=== PATIENT | male | born 1935 | race Caucasian/White ===

== ENCOUNTER 2018-11-13 22:31 | Inpatient (IN) | payer MEDICARE ==
--- NOTE | 2018-11-13 23:35 | EDM.PDOC ---
<OfficerJoey - Last Filed: 11/14/18 06:59> ED HPI GENERAL MEDICAL PROBLEM - General Chief Complaint: General Stated Complaint: [facility] Time Seen by Provider: 11/13/18 23:21 Source of Information: Reports: Patient, RN Notes Reviewed History Limitations: Reports: Altered Mental Status - History of Present Illness INITIAL COMMENTS - FREE TEXT/NARRATIVE: 82-year-old gentleman presents emergency department today via EMS services for visual hallucinations, he has a known history of lung cancer status post chemotherapy as well as radiation. Has a history of back pain which she's been using hydrocodone for her report from EMS has been using combination hydrocodone and alcohol. Reason for evaluation this evening is the gentleman reports seeing zebras walking in between [place] the farm. He denies that he 's had any alcohol this evening - Related Data Allergies Allergy/AdvReac Type Severity Reaction Status Date / Time Penicillins Allergy Rash Verified 11/13/18 22:34 Home Meds: Home Meds Acetaminophen/HYDROcodone [[place] 325-5 MG] 1 - 2 tab PO Q4H PRN 11/13/18 [ History] Past Medical History Cardiovascular History: Reports: Hypertension Musculoskeletal History: Reports: Back Pain, Chronic, Other (See Below) Other Musculoskeletal History: closed compression of second lumbar Oncologic (Cancer) History: Reports: Colon, Lung - Infectious Disease History Infectious Disease History: Reports: Chicken Pox, Measles, Mumps, Shingles - Past Surgical History Respiratory Surgical History: Reports: Lung Biopsies, Other (See Below) Other Respiratory Surgeries/Procedures: recently done with lung ca treatment GI Surgical History: Reports: Colostomy, Other (See Below) Other GI Surgeries/Procedures: colon ca Social & Family History - Family History Family Medical History: Noncontributory - Tobacco Use Smoking Status *Q: Current Every Day Smoker Years of Tobacco use: 40 Packs/Tins Daily: 1 - Caffeine Use Caffeine Use: Reports: Coffee - Recreational Drug Use Recreational Drug Use: No ED ROS GENERAL - Review of Systems Review Of Systems: See Below Constitutional: Reports: No Symptoms HEENT: Reports: No Symptoms Respiratory: Reports: No Symptoms Cardiovascular: Reports: No Symptoms GI/Abdominal: Reports: No Symptoms Musculoskeletal: Reports: No Symptoms Skin: Reports: No Symptoms Neurological: Reports: No Symptoms Psychiatric: Reports: Hallucinations ED EXAM, GENERAL - Physical Exam Exam: See Below Exam Limited By: No Limitations General Appearance: Alert, WD/WN, No Apparent Distress Respiratory/Chest: No Respiratory Distress, Lungs Clear, Normal Breath Sounds, No Accessory Muscle Use, Chest Non-Tender Cardiovascular: Regular Rate, Rhythm, No Murmur Psychiatric: Normal Affect, Normal Mood, Other (Visual hallucinations) Course - Vital Signs Last Recorded V/S: Last Vital Signs Temp 96.1 F 11/14/18 10:21 Pulse 77 11/14/18 10:21 Resp 16 11/14/18 10:21 BP 140/54 L 11/14/18 10:21 Pulse Ox 96 11/14/18 10:21 - Orders/Labs/Meds Orders: Medication Orders Haloperidol Lactate (Haldol) 5 mg IVPUSH Q2H PRN PRN Reason: Agitation Lorazepam (Ativan) 1 - 2 mg IVPUSH Q2H PRN PRN Reason: agitation Sodium Chloride (Saline Flush) 10 ml FLUSH ASDIRECTED PRN PRN Reason: Keep Vein Open Labs: Laboratory Tests 11/13/18 11/13/18 11/13/18 Range/Units 23:40 23:40 23:40 WBC 6.1 (4.5-11.0) K/uL RBC 3.96 L (4.30-5.90) M/uL Hgb 12.8 (12.0-15.0) g/dL Hct 36.5 L (40.0-54.0) % MCV 92 (80-98) fL MCH 32 H (27-31) pg MCHC 35 (32-36) % Plt Count 233 (150-400) K/uL Neut % (Auto) 79 H (36-66) % Lymph % (Auto) 8 L (24-44) % [place] % (Auto) 13 H (2-6) % Eos % (Auto) 0 L (2-4) % Baso % (Auto) 0 (0-1) % Sodium 134 L (140-148) mmol/L Potassium 3.5 L (3.6-5.2) mmol/L Chloride 95 L (100-108) mmol/L Carbon Dioxide 30 (21-32) mmol/L Anion Gap 12.5 (5.0-14.0) mmol/L BUN 20 H (7-18) mg/dL Creatinine 0.8 (0.8-1.3) mg/dL Est Cr Clr Drug Dosing 63.74 mL/min Estimated GFR (MDRD) > 60 (>60) Glucose 110 H (74-106) mg/dL Calcium 9.7 (8.5-10.1) mg/dL Total Bilirubin 0.9 (0.2-1.0) mg/dL AST 23 (15-37) U/L ALT 23 (12-78) U/L Alkaline Phosphatase 89 (46-116) U/L Total Protein 7.5 (6.4-8.2) g/dL Albumin 3.4 (3.4-5.0) g/dL Globulin 4.1 H (2.3-3.5) g/dL Albumin/Globulin Ratio 0.8 L (1.2-2.2) Urine Color Urine Appearance Urine pH (4.5-8.0) Ur Specific [place] (1.008-1.030) Urine Protein (NEGATIVE) mg/dL Urine Glucose (UA) (NEGATIVE) mg/dL Urine Ketones (NEGATIVE) mg/dL Urine Occult Blood (NEGATIVE) Urine Nitrite (NEGAITVE) Urine Bilirubin (NEGATIVE) Urine Urobilinogen (NORMAL) mg/dL Ur Leukocyte Esterase (NEGATIVE) Urine RBC (0-5) Urine WBC (0-5) Ur Epithelial Cells Amorphous Sediment Urine Bacteria Urine Mucus Salicylates (2.0-20.0) mg/dL Urine Opiates Screen (NEGATIVE) Ur Oxycodone Screen (NEGATIVE) Urine Methadone Screen (NEGATIVE) Ur Propoxyphene Screen (NEGATIVE) Acetaminophen < 2.0 L (10.0-30.0) ug/mL Ur Barbiturates Screen (NEGATIVE) Ur Tricyclics Screen (NEGATIVE) Ur Phencyclidine Scrn (NEGATIVE) Ur Amphetamine Screen (NEGATIVE) U Methamphetamines Scrn (NEGATIVE) Urine MDMA Screen (NEGATIVE) U Benzodiazepines Scrn (NEGATIVE) U Cocaine Metab Screen (NEGATIVE) U Marijuana (THC) Screen (NEGATIVE) Ethyl Alcohol < 3 mg/dL 11/13/18 11/14/18 11/14/18 Range/Units 23:40 01:00 01:00 WBC (4.5-11.0) K/uL RBC (4.30-5.90) M/uL Hgb (12.0-15.0) g/dL Hct (40.0-54.0) % MCV (80-98) fL MCH (27-31) pg MCHC (32-36) % Plt Count (150-400) K/uL Neut % (Auto) (36-66) % Lymph % (Auto) (24-44) % [place] % (Auto) (2-6) % Eos % (Auto) (2-4) % Baso % (Auto) (0-1) % Sodium (140-148) mmol/L Potassium (3.6-5.2) mmol/L Chloride (100-108) mmol/L Carbon Dioxide (21-32) mmol/L Anion Gap (5.0-14.0) mmol/L BUN (7-18) mg/dL Creatinine (0.8-1.3) mg/dL Est Cr Clr Drug Dosing mL/min Estimated GFR (MDRD) (>60) Glucose (74-106) mg/dL Calcium (8.5-10.1) mg/dL Total Bilirubin (0.2-1.0) mg/dL AST (15-37) U/L ALT (12-78) U/L Alkaline Phosphatase (46-116) U/L Total Protein (6.4-8.2) g/dL Albumin (3.4-5.0) g/dL Globulin (2.3-3.5) g/dL Albumin/Globulin Ratio (1.2-2.2) Urine Color Yellow Urine Appearance Cloudy Urine pH 8.0 (4.5-8.0) Ur Specific [place] 1.015 (1.008-1.030) Urine Protein Negative (NEGATIVE) mg/dL Urine Glucose (UA) Normal (NEGATIVE) mg/dL Urine Ketones 50 H (NEGATIVE) mg/dL Urine Occult Blood Trace (NEGATIVE) Urine Nitrite Negative (NEGAITVE) Urine Bilirubin Negative (NEGATIVE) Urine Urobilinogen Normal (NORMAL) mg/dL Ur Leukocyte Esterase Small (NEGATIVE) Urine RBC 0-5 (0-5) Urine WBC 0-5 (0-5) Ur Epithelial Cells Few Amorphous Sediment Many Urine Bacteria Many Urine Mucus Not seen Salicylates 0.4 L (2.0-20.0) mg/dL Urine Opiates Screen Presumptive positive H (NEGATIVE) Ur Oxycodone Screen Presumptive positive H (NEGATIVE) Urine Methadone Screen Negative (NEGATIVE) Ur Propoxyphene Screen Negative (NEGATIVE) Acetaminophen (10.0-30.0) ug/mL Ur Barbiturates Screen Negative (NEGATIVE) Ur Tricyclics Screen Negative (NEGATIVE) Ur Phencyclidine Scrn Negative (NEGATIVE) Ur Amphetamine Screen Negative (NEGATIVE) U Methamphetamines Scrn Negative (NEGATIVE) Urine MDMA Screen Negative (NEGATIVE) U Benzodiazepines Scrn Negative (NEGATIVE) U Cocaine Metab Screen Negative (NEGATIVE) U Marijuana (THC) Screen Negative (NEGATIVE) Ethyl Alcohol mg/dL Meds: Medications Generic Name Dose Route Start Last Admin Trade Name Freq PRN Reason Stop Dose Admin Haloperidol Lactate 5 mg 11/14/18 10:59 Haldol IVPUSH Q2H PRN Agitation Lorazepam 1 - 2 mg 11/14/18 10:54 Ativan IVPUSH Q2H PRN agitation Sodium Chloride 10 ml 11/14/18 11:00 Saline Flush FLUSH ASDIRECTED PRN Keep Vein Open Discontinued Medications Generic Name Dose Route Start Last Admin Trade Name Freq PRN Reason Stop Dose Admin Haloperidol 5 mg 11/14/18 06:56 11/14/18 07:03 Haldol PO 11/14/18 06:57 5 mg ONETIME ONE Administration Haloperidol Lactate 5 mg 11/14/18 07:21 11/14/18 07:25 Haldol IM 11/14/18 07:22 5 mg ONETIME ONE Administration Lorazepam 0.5 mg 11/14/18 06:56 11/14/18 07:00 Ativan PO 11/14/18 06:57 0.5 mg ONETIME ONE Administration Lorazepam 1 mg 11/14/18 07:22 Ativan IM 11/14/18 07:23 ONETIME ONE Departure - Departure Disposition: Admitted As Inpatient 65 Clinical Impression: Acute delirium - Discharge Information - Assessment/Plan Plan: Assessment Acuity = acute Site and laterality = suspicious for increasing dementia Etiology = unclear etiology Manifestations = waxing and waning of lucency with visual hallucinations Location of injury = Home Lab values = CBC CMP and urinalysis unremarkable urine drug screen positive for opiates Plan He declined any image studies of his head family also was not interested in pursuing this at this time, we did have several hours of observation he will wax and wane from lucency at this time he denies any easy bruises being [place] with [place] however he continues to feel he has to go somewhere. He is not had any sleep this evening, family will be presents this morning after 7: 00 at which time have a family conference to discuss treatment options This note was dictated using Hublished voice recognition software please call with any questions on syntax or grammar. <Wale Duke - Last Filed: 11/14/18 11:25> Course - Re-Assessments/Exams Free Text/Narrative Re-Assessment/Exam: 11/14/18 09:27 Patient accepted from Officer at shift transfer. He was becoming increasingly agitated so 5 mg of IM Haldol was given after the patient refused to take oral Haldol. Within 30 minutes he calmed down very nicely but was still upset. He was evaluated by his primary provider Dr. Caleb Palomares, and he is going to admit the patient with suspected narcotic withdrawal and consider further evaluation and treatment. Departure - Departure Time of Disposition: 10:39 Condition: Fair
[2018-11-14 01:53] LABS: ACETAMINOPHEN < 2.0 ug/mL (10.0-30.0)
[2018-11-14] MEDS ORDERED: Haloperidol 5 MG Tab PO ONE (06:56)
[2018-11-14] MEDS ORDERED: LORazepam 0.5 MG Tab PO ONE (06:56)
[2018-11-14] MEDS ORDERED: Haloperidol Lactate 5 MG/ML SDV IM ONE (07:21)
[2018-11-14] MEDS ORDERED: LORazepam 2 MG/ML SDV IM ONE (07:22)
--- NOTE | 2018-11-14 08:48 | PCM.HP ---
H&P History of Present Illness - General Date of Service: 11/14/18 Admit Problem/Dx: Admission Diagnosis/Problem Admission Diagnosis/Problem Hallucinations Source of Information: EMS, Family History Limitations: Reports: Altered Mental Status, Combative/Threatening, Uncooperative - History of Present Illness Initial Comments - Free Text/Narative: Milo has recently been diagnosed with cancer of the lung and started radiation therapy of his brain prophylactically according to the physician at [place] and [place]. He has finished 4 of 6 treatments. There has not been any evidence of cancer in his brain but doing this prophylactically. He was recently found to be hyponatremic and was treated with extra salt pills. He has been confused recently especially at night according to the family he got his gone out he thought there is somebody in his house somebody outside he thought there was a lot of N his place and accusing people of all sorts of conditions caused by hallucination. The daughter called this morning said she was very concerned about the safety of his and he was a danger to himself and to others. They have put the guns away apparently. Onset of Symptoms: Reports: Gradual Duration of Symptoms: Reports: Day(s): Associated Symptoms: Reports: Confusion - Related Data Allergies/Adverse Reactions: Allergies Allergy/AdvReac Type Severity Reaction Status Date / Time Penicillins Allergy Rash Verified 11/13/18 22:34 Home Medications: Home Meds Acetaminophen/HYDROcodone [[place] 325-5 MG] 1 - 2 tab PO Q4H PRN 11/13/18 [ History] Past Medical History Cardiovascular History: Reports: Hypertension Genitourinary History: Reports: Urostomy Musculoskeletal History: Reports: Back Pain, Chronic, Other (See Below) Other Musculoskeletal History: closed compression of second lumbar Oncologic (Cancer) History: Reports: Colon, Lung - Infectious Disease History Infectious Disease History: Reports: Chicken Pox, Measles, Mumps, Shingles - Past Surgical History Respiratory Surgical History: Reports: Lung Biopsies, Other (See Below) Other Respiratory Surgeries/Procedures: recently done with lung ca treatment GI Surgical History: Reports: Colostomy, Other (See Below) Other GI Surgeries/Procedures: colon ca Social & Family History - Family History Family Medical History: Noncontributory - Tobacco Use Smoking Status *Q: Current Every Day Smoker Years of Tobacco use: 40 Packs/Tins Daily: 1 - Caffeine Use Caffeine Use: Reports: Coffee - Recreational Drug Use Recreational Drug Use: No H&P Review of Systems - Review of Systems: Review Of Systems: See Below General: Reports: Weight Loss HEENT: Reports: No Symptoms Pulmonary: Reports: No Symptoms Cardiovascular: Reports: No Symptoms Gastrointestinal: Reports: No Symptoms Genitourinary: Reports: No Symptoms Musculoskeletal: Reports: No Symptoms Skin: Reports: No Symptoms Psychiatric: Reports: Confusion, Anxiety, Agitation, Hallucinations, Hallucinations (Visual) Neurological: Reports: Confusion, Gait Disturbance Exam - Exam Exam: See Below - Vital Signs Vital Signs: Last Vital Signs Temp 97.3 F 11/14/18 02:59 Pulse 91 11/14/18 08:22 Resp 18 11/14/18 02:59 BP 150/90 H 11/14/18 08:22 Pulse Ox 98 11/14/18 02:59 Weight: 142 lb - Exam General: Moderate Distress HEENT: PERRLA, Hearing Intact, Mucosa Moist & [place], Nares Patent, Normal Nasal Septum, Posterior Pharynx Clear, Conjunctiva Clear, EOMI, EACs Clear, TMs Clear Neck: Supple, Trachea Midline, 2 Lungs: Clear to Auscultation, Normal Respiratory Effort Cardiovascular: Regular Rate, Regular Rhythm GI/Abdominal Exam: Normal Bowel Sounds, Soft, Non-Tender, No Organomegaly, No Distention, No Abnormal Bruit, No Mass, Pelvis Stable Back Exam: Other (kyphosis) Extremities: Normal Inspection Peripheral Pulses: 1+: Radial (L), Radial (R) Skin: Warm, Dry, Intact Neuro Extensive - Mental Status: Disorientation to Person, Disorientation to Time, Inattentive, Memory Loss-Remote Events Psychiatric: Anxious, Agitated, Hallucinations - Patient Data Lab Results Last 24 hrs: Laboratory Results - last 24 hr 11/13/18 11/13/18 11/13/18 Range/Units 23:40 23:40 23:40 WBC 6.1 (4.5-11.0) K/uL RBC 3.96 L (4.30-5.90) M/uL Hgb 12.8 (12.0-15.0) g/dL Hct 36.5 L (40.0-54.0) % MCV 92 (80-98) fL MCH 32 H (27-31) pg MCHC 35 (32-36) % Plt Count 233 (150-400) K/uL Neut % (Auto) 79 H (36-66) % Lymph % (Auto) 8 L (24-44) % [place] % (Auto) 13 H (2-6) % Eos % (Auto) 0 L (2-4) % Baso % (Auto) 0 (0-1) % Sodium 134 L (140-148) mmol/L Potassium 3.5 L (3.6-5.2) mmol/L Chloride 95 L (100-108) mmol/L Carbon Dioxide 30 (21-32) mmol/L Anion Gap 12.5 (5.0-14.0) mmol/L BUN 20 H (7-18) mg/dL Creatinine 0.8 (0.8-1.3) mg/dL Est Cr Clr Drug Dosing 63.74 mL/min Estimated GFR (MDRD) > 60 (>60) Glucose 110 H (74-106) mg/dL Calcium 9.7 (8.5-10.1) mg/dL Total Bilirubin 0.9 (0.2-1.0) mg/dL AST 23 (15-37) U/L ALT 23 (12-78) U/L Alkaline Phosphatase 89 (46-116) U/L Total Protein 7.5 (6.4-8.2) g/dL Albumin 3.4 (3.4-5.0) g/dL Globulin 4.1 H (2.3-3.5) g/dL Albumin/Globulin Ratio 0.8 L (1.2-2.2) Urine Color Urine Appearance Urine pH (4.5-8.0) Ur Specific [place] (1.008-1.030) Urine Protein (NEGATIVE) mg/dL Urine Glucose (UA) (NEGATIVE) mg/dL Urine Ketones (NEGATIVE) mg/dL Urine Occult Blood (NEGATIVE) Urine Nitrite (NEGAITVE) Urine Bilirubin (NEGATIVE) Urine Urobilinogen (NORMAL) mg/dL Ur Leukocyte Esterase (NEGATIVE) Urine RBC (0-5) Urine WBC (0-5) Ur Epithelial Cells Amorphous Sediment Urine Bacteria Urine Mucus Salicylates (2.0-20.0) mg/dL Urine Opiates Screen (NEGATIVE) Ur Oxycodone Screen (NEGATIVE) Urine Methadone Screen (NEGATIVE) Ur Propoxyphene Screen (NEGATIVE) Acetaminophen < 2.0 L (10.0-30.0) ug/mL Ur Barbiturates Screen (NEGATIVE) Ur Tricyclics Screen (NEGATIVE) Ur Phencyclidine Scrn (NEGATIVE) Ur Amphetamine Screen (NEGATIVE) U Methamphetamines Scrn (NEGATIVE) Urine MDMA Screen (NEGATIVE) U Benzodiazepines Scrn (NEGATIVE) U Cocaine Metab Screen (NEGATIVE) U Marijuana (THC) Screen (NEGATIVE) Ethyl Alcohol < 3 mg/dL 11/13/18 11/14/18 11/14/18 Range/Units 23:40 01:00 01:00 WBC (4.5-11.0) K/uL RBC (4.30-5.90) M/uL Hgb (12.0-15.0) g/dL Hct (40.0-54.0) % MCV (80-98) fL MCH (27-31) pg MCHC (32-36) % Plt Count (150-400) K/uL Neut % (Auto) (36-66) % Lymph % (Auto) (24-44) % [place] % (Auto) (2-6) % Eos % (Auto) (2-4) % Baso % (Auto) (0-1) % Sodium (140-148) mmol/L Potassium (3.6-5.2) mmol/L Chloride (100-108) mmol/L Carbon Dioxide (21-32) mmol/L Anion Gap (5.0-14.0) mmol/L BUN (7-18) mg/dL Creatinine (0.8-1.3) mg/dL Est Cr Clr Drug Dosing mL/min Estimated GFR (MDRD) (>60) Glucose (74-106) mg/dL Calcium (8.5-10.1) mg/dL Total Bilirubin (0.2-1.0) mg/dL AST (15-37) U/L ALT (12-78) U/L Alkaline Phosphatase (46-116) U/L Total Protein (6.4-8.2) g/dL Albumin (3.4-5.0) g/dL Globulin (2.3-3.5) g/dL Albumin/Globulin Ratio (1.2-2.2) Urine Color Yellow Urine Appearance Cloudy Urine pH 8.0 (4.5-8.0) Ur Specific [place] 1.015 (1.008-1.030) Urine Protein Negative (NEGATIVE) mg/dL Urine Glucose (UA) Normal (NEGATIVE) mg/dL Urine Ketones 50 H (NEGATIVE) mg/dL Urine Occult Blood Trace (NEGATIVE) Urine Nitrite Negative (NEGAITVE) Urine Bilirubin Negative (NEGATIVE) Urine Urobilinogen Normal (NORMAL) mg/dL Ur Leukocyte Esterase Small (NEGATIVE) Urine RBC 0-5 (0-5) Urine WBC 0-5 (0-5) Ur Epithelial Cells Few Amorphous Sediment Many Urine Bacteria Many Urine Mucus Not seen Salicylates 0.4 L (2.0-20.0) mg/dL Urine Opiates Screen Presumptive positive H (NEGATIVE) Ur Oxycodone Screen Presumptive positive H (NEGATIVE) Urine Methadone Screen Negative (NEGATIVE) Ur Propoxyphene Screen Negative (NEGATIVE) Acetaminophen (10.0-30.0) ug/mL Ur Barbiturates Screen Negative (NEGATIVE) Ur Tricyclics Screen Negative (NEGATIVE) Ur Phencyclidine Scrn Negative (NEGATIVE) Ur Amphetamine Screen Negative (NEGATIVE) U Methamphetamines Scrn Negative (NEGATIVE) Urine MDMA Screen Negative (NEGATIVE) U Benzodiazepines Scrn Negative (NEGATIVE) U Cocaine Metab Screen Negative (NEGATIVE) U Marijuana (THC) Screen Negative (NEGATIVE) Ethyl Alcohol mg/dL Result Diagrams: 11/13/18 23:40 11/13/18 23:40 Problem List Initiated/Reviewed/Updated: Yes Orders Last 24hrs: Active Orders 24 hr Category Date Time Status Patient Status [ADT] Routine ADT 11/14/18 08:42 Ordered Height and Weight [RC] DAILY Care 11/14/18 08:42 Ordered Intake and Output [RC] QSHIFT Care 11/14/18 08:46 Ordered Oxygen Therapy [RC] PRN Care 11/14/18 08:42 Ordered Up to Chair [RC] QID Care 11/14/18 08:42 Ordered VTE/DVT Education [RC] Per Unit Routine Care 11/14/18 08:42 Ordered Vital Signs [RC] Q4H Care 11/14/18 08:42 Ordered Regular Diet [DIET] Diet 11/14/18 Lunch Ordered Resuscitation Status Routine Resus Stat 11/14/18 08:42 Ordered Assessment/Plan Comment:: Assessment/Plan: #1. Hallucinations: He received Haldol while in the emergency room we'll continue with Haldol and or Ativan and Tuesday keep him comfortable. #2. Cancer of the lung. Small cell lung cancer-primary #3. Malignant neoplasm of the bladder. #4. 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 #5. Essential hypertension. we'll watch his blood pressure closely and give medication as needed. #6. Cystectomy with ileal conduit #7. Hypokalemia: We'll supplement with oral potassium #8. Compression Fracture L2. Assume acute. Will get the films or the report. #8. Allergies- penicillin
[2018-11-14] MEDS ORDERED: LORazepam 2 MG/ML SDV IVPUSH PRN (10:54)
[2018-11-14] MEDS ORDERED: Haloperidol Lactate 5 MG/ML SDV IVPUSH PRN (10:59)
[2018-11-14] MEDS ORDERED: Sodium Chloride 0.9% 10 ML Syringe FLUSH PRN (11:00)
[2018-11-14] MEDS ORDERED: Sodium Chloride 0.9% 80 ML IV ONE (11:32)
[2018-11-14] MEDS ORDERED: Sodium Chloride 0.9% 10 ML Syringe FLUSH ONE (11:32)
[2018-11-14] MEDS ORDERED: Iopamidol 612 MG/ML 100 ML Bottle IV SCH (11:45)
--- NOTE | 2018-11-14 12:54 | CRLCT ---
INDICATION: Visual hallucinations. TECHNIQUE: Scanning of the head was performed without and with 100 cc of Isovue 300 contrast material IV. COMPARISON: None. FINDINGS: No intracranial hemorrhage is demonstrated. No positive mass effect or abnormal contrast enhancement is evident. Differentiation between the plummer matter and white matter is preserved. There is nonspecific decreased attenuation in the cerebral white matter which is most likely due to aging/chronic microvascular ischemic disease. The ventricles and other subarachnoid spaces are within normal limits for the patient`s age. No calvarial abnormality is evident. The visualized paranasal and mastoid sinuses are clear. IMPRESSION: 1. No acute abnormality demonstrated. 2. 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 Please note that all CT scans at this facility use dose modulation, iterative reconstruction, and/or weight-based dosing when appropriate to reduce radiation dose to as low as reasonably achievable. Dictated by Mahendra Jeter MD @ Nov 14 2018 12:47PM Signed by Dr. Mahendra Jeter @ Nov 14 2018 12:52PM
[2018-11-14] MEDS ORDERED: Potassium Chloride 20 MEQ Tab.ER ONE (20:05)
[2018-11-14] MEDS: Potassium Chloride 20 MEQ Tab.ER PO SCH (20:10)
[2018-11-15] MEDS: Potassium Chloride 20 MEQ Tab.ER PO SCH ×2 (10:56→20:38)
--- NOTE | 2018-11-15 17:41 | PCM.PN ---
- General Info Date of Service: 11/15/18 Subjective Update: He appears to be improving with less mental confusion. He is complaining of back pain. He has been sleeping. He is stkill confused. - Review of Systems General: Reports: Weakness HEENT: Reports: No Symptoms Pulmonary: Reports: No Symptoms Cardiovascular: Reports: No Symptoms Gastrointestinal: Reports: No Symptoms Musculoskeletal: Reports: Back Pain Skin: Reports: No Symptoms Neurological: Reports: No Symptoms - Patient Data Vitals - Most Recent: Last Vital Signs Temp 98.1 F 11/15/18 10:00 Pulse 78 11/15/18 16:00 Resp 20 11/15/18 16:00 BP 136/68 11/15/18 16:00 Pulse Ox 96 11/15/18 16:00 Weight - Most Recent: 142 lb I&O - Last 24 Hours: Intake & Output 11/15/18 11/15/18 11/15/18 06:59 14:59 22:59 Intake Total 120 Output Total 365 Balance -245 Med Orders - Current: Current Medications Haloperidol Lactate (Haldol) 5 mg IVPUSH Q2H PRN PRN Reason: Agitation Lorazepam (Ativan) 1 - 2 mg IVPUSH Q2H PRN PRN Reason: agitation Potassium Chloride (Klor-Con M20) 20 meq PO BID [facility] Last Admin: 11/15/18 10:56 Dose: 20 meq Sodium Chloride (Saline Flush) 10 ml FLUSH ASDIRECTED PRN PRN Reason: Keep Vein Open Discontinued Medications Haloperidol (Haldol) 5 mg PO ONETIME ONE Stop: 11/14/18 06:57 Last Admin: 11/14/18 07:03 Dose: 5 mg Haloperidol Lactate (Haldol) 5 mg IM ONETIME ONE Stop: 11/14/18 07:22 Last Admin: 11/14/18 07:25 Dose: 5 mg Sodium Chloride (Normal Saline) 80 mls @ 3.5 mls/sec IV ONETIME ONE Stop: 11/14/18 11:33 Last Admin: 11/14/18 11:58 Dose: 3 mls/sec Iopamidol (Isovue-300 (61%)) 100 ml IV . DIRECTED [facility] Stop: 11/14/18 11:46 Last Admin: 11/14/18 11:57 Dose: 100 ml Lorazepam (Ativan) 0.5 mg PO ONETIME ONE Stop: 11/14/18 06:57 Last Admin: 11/14/18 07:00 Dose: 0.5 mg Lorazepam (Ativan) 1 mg IM ONETIME ONE Stop: 11/14/18 07:23 Last Admin: 11/14/18 20:03 Dose: Not Given Potassium Chloride (Klor-Con M20) Confirm Administered Dose 20 meq .ROUTE .STK- MED ONE Stop: 11/14/18 20:06 Last Admin: 11/14/18 21:16 Dose: Not Given Sodium Chloride (Saline Flush) 10 ml FLUSH ONETIME ONE Stop: 11/14/18 11:33 Last Admin: 11/14/18 11:57 Dose: 10 ml - Exam General: Alert, Oriented Lungs: Clear to Auscultation, Normal Respiratory Effort Cardiovascular: Regular Rate, Regular Rhythm GI/Abdominal Exam: Normal Bowel Sounds, Soft, Non-Tender, No Organomegaly, No Distention, No Abnormal Bruit, No Mass, Pelvis Stable Extremities: Normal Inspection, Normal Range of Motion, Non-Tender, No Pedal Edema, Normal Capillary Refill Peripheral Pulses: 1+: Radial (L), Radial (R) Skin: Warm, Dry, Intact Psy/Mental Status: Depressed, Hallucinations - Problem List Review Problem List Initiated/Reviewed/Updated: Yes - My Orders Last 24 Hours: My Active Orders 11/14/18 18:45 Potassium Chloride [Klor-Con M20] 20 meq PO BID - Plan Plan:: Assessment/Plan: #1. Hallucinations: He received Haldol while in the emergency room we'll continue with Haldol and or Ativan and Tuesday keep him comfortable. #2. Cancer of the lung. Small cell lung cancer-primary #3. Malignant neoplasm of the bladder. #4. 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 #5. Essential hypertension. we'll watch his blood pressure closely and give medication as needed. Blood pressure is good control. #6. Cystectomy with ileal conduit #7. Hypokalemia: We'll supplement with oral potassium #8. Compression Fracture L2. Assume acute. Will get the films or the report. Depending on the report of the CT of the back will help us decide on therapy or vertebral plasty. #8. Allergies- penicillin
[2018-11-15] MEDS ORDERED: Bisacodyl 5 MG Tab PO ONE (21:00)
[2018-11-16] MEDS ORDERED: Bisacodyl 5 MG Tab PO PRN (08:00)
[2018-11-16 08:15] VITALS: BP 153/88
[2018-11-16] MEDS: Potassium Chloride 20 MEQ Tab.ER PO SCH (09:08)
--- NOTE | 2018-11-16 09:43 | PCM.PN ---
- General Info Date of Service: 11/16/18 Subjective Update: This morning he is sitting in the chair he is alert and orientated 3 answering questions and appears to be stable. He is aware that he was hallucinating he still remembers the incidence that brought him into the hospital. He continues to have back pain of significance. Functional Status: Reports: Tolerating Diet - Review of Systems General: Reports: Weakness HEENT: Reports: No Symptoms Pulmonary: Reports: No Symptoms Cardiovascular: Reports: No Symptoms Gastrointestinal: Reports: No Symptoms Genitourinary: Reports: No Symptoms Musculoskeletal: Reports: Back Pain Skin: Reports: No Symptoms Neurological: Reports: Gait Disturbance Psychiatric: Reports: No Symptoms - Patient Data Vitals - Most Recent: Last Vital Signs Temp 96.0 F 11/16/18 08:14 Pulse 61 11/16/18 08:14 Resp 16 11/16/18 08:14 BP 153/88 H 11/16/18 08:14 Pulse Ox 96 11/16/18 08:14 Weight - Most Recent: 142 lb I&O - Last 24 Hours: Intake & Output 11/15/18 11/16/18 11/16/18 22:59 06:59 14:59 Intake Total 120 240 Output Total 550 Balance -430 240 Lab Results Last 24 Hours: Laboratory Results - last 24 hr 11/16/18 11/16/18 Range/Units 04:44 04:44 WBC 4.6 (4.5-11.0) K/uL RBC 3.96 L (4.30-5.90) M/uL Hgb 12.9 (12.0-15.0) g/dL Hct 36.9 L (40.0-54.0) % MCV 93 (80-98) fL MCH 33 H (27-31) pg MCHC 35 (32-36) % Plt Count 217 (150-400) K/uL Sodium 134 L (140-148) mmol/L Potassium 3.9 (3.6-5.2) mmol/L Chloride 97 L (100-108) mmol/L Carbon Dioxide 29 (21-32) mmol/L Anion Gap 11.9 (5.0-14.0) mmol/L BUN 14 (7-18) mg/dL Creatinine 0.8 (0.8-1.3) mg/dL Est Cr Clr Drug Dosing 63.74 mL/min Estimated GFR (MDRD) > 60 (>60) Glucose 100 (74-106) mg/dL Calcium 9.3 (8.5-10.1) mg/dL Med Orders - Current: Current Medications Bisacodyl (Dulcolax) 10 mg PO DAILY PRN PRN Reason: Constipation Haloperidol Lactate (Haldol) 5 mg IVPUSH Q2H PRN PRN Reason: Agitation Lorazepam (Ativan) 1 - 2 mg IVPUSH Q2H PRN PRN Reason: agitation Potassium Chloride (Klor-Con M20) 20 meq PO BID [facility] Last Admin: 11/16/18 09:08 Dose: 20 meq Sodium Chloride (Saline Flush) 10 ml FLUSH ASDIRECTED PRN PRN Reason: Keep Vein Open Discontinued Medications Bisacodyl (Dulcolax) 20 mg PO ONETIME ONE Stop: 11/15/18 21:01 Last Admin: 11/15/18 20:37 Dose: 20 mg Haloperidol (Haldol) 5 mg PO ONETIME ONE Stop: 11/14/18 06:57 Last Admin: 11/14/18 07:03 Dose: 5 mg Haloperidol Lactate (Haldol) 5 mg IM ONETIME ONE Stop: 11/14/18 07:22 Last Admin: 11/14/18 07:25 Dose: 5 mg Sodium Chloride (Normal Saline) 80 mls @ 3.5 mls/sec IV ONETIME ONE Stop: 11/14/18 11:33 Last Admin: 11/14/18 11:58 Dose: 3 mls/sec Iopamidol (Isovue-300 (61%)) 100 ml IV . DIRECTED [facility] Stop: 11/14/18 11:46 Last Admin: 11/14/18 11:57 Dose: 100 ml Lorazepam (Ativan) 0.5 mg PO ONETIME ONE Stop: 11/14/18 06:57 Last Admin: 11/14/18 07:00 Dose: 0.5 mg Lorazepam (Ativan) 1 mg IM ONETIME ONE Stop: 11/14/18 07:23 Last Admin: 11/14/18 20:03 Dose: Not Given Potassium Chloride (Klor-Con M20) Confirm Administered Dose 20 meq .ROUTE .STK- MED ONE Stop: 11/14/18 20:06 Last Admin: 11/14/18 21:16 Dose: Not Given Sodium Chloride (Saline Flush) 10 ml FLUSH ONETIME ONE Stop: 11/14/18 11:33 Last Admin: 11/14/18 11:57 Dose: 10 ml - Exam General: Alert HEENT: Pupils Equal, Pupils Reactive, EOMI, Mucous Membr. Moist/[place] Neck: Supple Lungs: Clear to Auscultation Cardiovascular: Regular Rate, Regular Rhythm GI/Abdominal Exam: Normal Bowel Sounds Extremities: Normal Inspection, Normal Range of Motion, Non-Tender, No Pedal Edema, Normal Capillary Refill Peripheral Pulses: 1+: Radial (L), Radial (R) Skin: Warm, Dry, Intact Neurological: No New Focal Deficit Psy/Mental Status: Alert, Normal Affect, Normal Mood - Problem List Review Problem List Initiated/Reviewed/Updated: Yes - My Orders Last 24 Hours: My Active Orders 11/15/18 18:05 Admission Status [Patient Status] [ADT] Routine 11/16/18 08:00 Bisacodyl [Dulcolax] 10 mg PO DAILY PRN - Plan Plan:: Assessment/Plan: #1. Hallucinations: He received Haldol while in the emergency room. he has cleared mentally at the present time with no hallucinations. #2. Cancer of the lung. Small cell lung cancer-primary #3. Malignant neoplasm of the bladder. #4. 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 #5. Essential hypertension. we'll watch his blood pressure closely and give medication as needed. Blood pressure is good control. #6. Cystectomy with ileal conduit #7. Hypokalemia: We'll supplement with oral potassium. Potassium level today is 3.9. #8. Compression Fracture L2. this fracture of L2 is new as we did receive the report from [facility] in [place]. I also spoke with Dr. Cutler who has agreed to do vertebroplasty on the L2 fracture and will arrange for him to have this done within the next 2 days. #8. Allergies- penicillin He'll be discharged home today.
--- NOTE | 2018-11-16 09:49 | PCM.DCSUM1 ---
Discharge Summary - Hospital Course Brief History: Milo has a history of lung cancer and recently had radiation to his brain. I was told that this is prophylaxis radiation by the oncologist. he recently fell and had a fracture of L2 and was taking a large amount of narcotics. He became confused and hallucinating and came to the emergency room by ambulance as he was in danger to himself and to his family. He was seen in the emergency room placed on Haldol. He was confused and danger to himself and was admitted to ICU for close observation. Diagnosis: Stroke: No - Discharge Data Discharge Date: 11/16/18 Discharge Disposition: Home, Self-Care 01 Condition: Fair - Patient Summary/Data Hospital Course: After being seen in the emergency room he was admitted to the ICU and still was confused. He was observed closely and slept for close to 48 hours and responded well and is orientated at the time of discharge 3. He continued to have pain in his back and he is going to have her vertebral plasty within the next [address] of the head was done which showed no acute findings. Potassium was slightly low and was corrected to 3.9. All other laboratory analysis were unremarkable. He'll be discharged home in care of his family. He is a little unsteady on his feet due to generalized weakness but mentally he appears to be stable. He is not to take any narcotics as this I feel causes hallucination. He'll take anti-inflammatory medications and instead of narcotics and the family is aware of this. He is also aware of the danger of narcotics for him. - Patient Instructions Diet: Heart Healthy Diet Activity: As Tolerated - Discharge Plan *PRESCRIPTION DRUG MONITORING PROGRAM REVIEWED*: No Home Medications: Home Meds Potassium Chloride [Klor-Con M20] 20 meq PO DAILY tab.er 11/16/18 [Rx] Forms: ED Department Discharge Referrals: Armond Palomares Sr, MD [Primary Care Provider] - - Discharge Summary/Plan Comment DC Time >30 min.: Yes Discharge Summary/Plan Comment: Assessment/Plan: #1. Hallucinations: He received Haldol while in the emergency room. he has cleared mentally at the present time with no hallucinations. #2. Cancer of the lung. Small cell lung cancer-primary #3. Malignant neoplasm of the bladder. #4. 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 #5. Essential hypertension. we'll watch his blood pressure closely and give medication as needed. Blood pressure is good control. #6. Cystectomy with ileal conduit #7. Hypokalemia: We'll supplement with oral potassium. Potassium level today is 3.9. #8. Compression Fracture L2. this fracture of L2 is new as we did receive the report from [facility] in [place]. I also spoke with Dr. Cutler who has agreed to do vertebroplasty on the L2 fracture and will arrange for him to have this done within the next 2 days. #8. Allergies- penicillin He'll be discharged home today. - General Info Subjective Update: This morning he is sitting in the chair he is alert and orientated 3 answering questions and appears to be stable. He is aware that he was hallucinating he still remembers the incidence that brought him into the hospital. He continues to have back pain of significance. - Review of Systems General: Reports: Weakness HEENT: Reports: No Symptoms Pulmonary: Reports: No Symptoms Cardiovascular: Reports: No Symptoms Gastrointestinal: Reports: No Symptoms Genitourinary: Reports: No Symptoms Musculoskeletal: Reports: Back Pain Neurological: Reports: No Symptoms Psychiatric: Reports: No Symptoms - Patient Data Vitals - Most Recent: Last Vital Signs Temp 96.0 F 11/16/18 08:14 Pulse 61 11/16/18 08:14 Resp 16 11/16/18 08:14 BP 153/88 H 11/16/18 08:14 Pulse Ox 96 11/16/18 08:14 Weight - Most Recent: 142 lb I&O - Last 24 hours: Intake & Output 11/15/18 11/16/18 11/16/18 22:59 06:59 14:59 Intake Total 120 240 Output Total 550 Balance -430 240 Lab Results - Last 24 hrs: Laboratory Results - last 24 hr 11/16/18 11/16/18 Range/Units 04:44 04:44 WBC 4.6 (4.5-11.0) K/uL RBC 3.96 L (4.30-5.90) M/uL Hgb 12.9 (12.0-15.0) g/dL Hct 36.9 L (40.0-54.0) % MCV 93 (80-98) fL MCH 33 H (27-31) pg MCHC 35 (32-36) % Plt Count 217 (150-400) K/uL Sodium 134 L (140-148) mmol/L Potassium 3.9 (3.6-5.2) mmol/L Chloride 97 L (100-108) mmol/L Carbon Dioxide 29 (21-32) mmol/L Anion Gap 11.9 (5.0-14.0) mmol/L BUN 14 (7-18) mg/dL Creatinine 0.8 (0.8-1.3) mg/dL Est Cr Clr Drug Dosing 63.74 mL/min Estimated GFR (MDRD) > 60 (>60) Glucose 100 (74-106) mg/dL Calcium 9.3 (8.5-10.1) mg/dL Med Orders - Current: Current Medications Bisacodyl (Dulcolax) 10 mg PO DAILY PRN PRN Reason: Constipation Haloperidol Lactate (Haldol) 5 mg IVPUSH Q2H PRN PRN Reason: Agitation Lorazepam (Ativan) 1 - 2 mg IVPUSH Q2H PRN PRN Reason: agitation Potassium Chloride (Klor-Con M20) 20 meq PO BID [facility] Last Admin: 11/16/18 09:08 Dose: 20 meq Sodium Chloride (Saline Flush) 10 ml FLUSH ASDIRECTED PRN PRN Reason: Keep Vein Open Discontinued Medications Bisacodyl (Dulcolax) 20 mg PO ONETIME ONE Stop: 11/15/18 21:01 Last Admin: 11/15/18 20:37 Dose: 20 mg Haloperidol (Haldol) 5 mg PO ONETIME ONE Stop: 11/14/18 06:57 Last Admin: 11/14/18 07:03 Dose: 5 mg Haloperidol Lactate (Haldol) 5 mg IM ONETIME ONE Stop: 11/14/18 07:22 Last Admin: 11/14/18 07:25 Dose: 5 mg Sodium Chloride (Normal Saline) 80 mls @ 3.5 mls/sec IV ONETIME ONE Stop: 11/14/18 11:33 Last Admin: 11/14/18 11:58 Dose: 3 mls/sec Iopamidol (Isovue-300 (61%)) 100 ml IV . DIRECTED [facility] Stop: 11/14/18 11:46 Last Admin: 11/14/18 11:57 Dose: 100 ml Lorazepam (Ativan) 0.5 mg PO ONETIME ONE Stop: 11/14/18 06:57 Last Admin: 11/14/18 07:00 Dose: 0.5 mg Lorazepam (Ativan) 1 mg IM ONETIME ONE Stop: 11/14/18 07:23 Last Admin: 11/14/18 20:03 Dose: Not Given Potassium Chloride (Klor-Con M20) Confirm Administered Dose 20 meq .ROUTE .STK- MED ONE Stop: 11/14/18 20:06 Last Admin: 11/14/18 21:16 Dose: Not Given Sodium Chloride (Saline Flush) 10 ml FLUSH ONETIME ONE Stop: 11/14/18 11:33 Last Admin: 11/14/18 11:57 Dose: 10 ml - Exam General: Reports: Alert, Oriented HEENT: Reports: Pupils Equal, Pupils Reactive, EOMI, Mucous Membr. Moist/[place] Neck: Reports: Supple Lungs: Reports: Clear to Auscultation Cardiovascular: Reports: Regular Rate, Regular Rhythm GI/Abdominal Exam: Normal Bowel Sounds, Soft, Non-Tender, No Organomegaly, No Distention, No Abnormal Bruit, No Mass, Pelvis Stable Back Exam: Reports: Paraspinal Tenderness, Vertebral Tenderness Extremities: Normal Inspection, Normal Range of Motion, Non-Tender, No Pedal Edema, Normal Capillary Refill Skin: Reports: Warm Neurological: Reports: No New Focal Deficit Psy/Mental Status: Reports: Alert, Normal Affect, Normal Mood
== END 2018-11-16 11:26 | disposition home or self-care (01) | DRG 884 ==
LOC: JP.ED 22:31 → JP.ICU 11-14 08:42
PROVIDERS: ADMIT Internal Medicine; ATTEND Internal Medicine
DX: R40.4 Transient alteration of awareness (principal); S32.029A Unspecified fracture of second lumbar vertebra, initial encounter for closed fracture; R41.0 Disorientation, unspecified; C34.90 Malignant neoplasm of unspecified part of unspecified bronchus or lung; R44.1 Visual hallucinations; R45.1 Restlessness and agitation; T40.605A Adverse effect of unspecified narcotics, initial encounter; I10 Essential (primary) hypertension; M54.9 Dorsalgia, unspecified; E87.6 Hypokalemia; W19.XXXA Unspecified fall, initial encounter; G89.29 Other chronic pain; F17.210 Nicotine dependence, cigarettes, uncomplicated; Z79.891 Long term (current) use of opiate analgesic; Z85.118 Personal history of other malignant neoplasm of bronchus and lung; Z92.21 Personal history of antineoplastic chemotherapy; Z92.3 Personal history of irradiation; Z88.0 Allergy status to penicillin; Z79.899 Other long term (current) drug therapy; Z85.038 Personal history of other malignant neoplasm of large intestine; Z93.3 Colostomy status; Z86.711 Personal history of pulmonary embolism; Z90.6 Acquired absence of other parts of urinary tract
CPT/HCPCS: 36415; 80053; 80305; 81001; 85025; 96372; 99285 ×3; A9270; G0480 ×3; J1630; 70470; 80048; 85027; J7030; Q9967

== ENCOUNTER 2018-11-30 23:18 | Inpatient (IN) | payer BC, MEDICARE ==
--- NOTE | 2018-11-30 23:35 | EDM.PDOC ---
ED HPI GENERAL MEDICAL PROBLEM - General Stated Complaint: MEDICAL [facility] Time Seen by Provider: 11/30/18 23:20 Source of Information: Reports: Patient, EMS, Family History Limitations: Reports: No Limitations - History of Present Illness INITIAL COMMENTS - FREE TEXT/NARRATIVE: 82-year-old male who was up in [place] today for an MRI to evaluate what sounds like cancer, returned home very weak and confused more than his baseline. Patient himself feels very weak but is not complaining of any pain or fever. Denies nausea or vomiting. His son is on capable of taking care of him at home because of his extreme weakness and confusion. He called the ambulance to send him to the hospital to be admitted. 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 He is very confused and fatigued. Onset: Unknown/Unsure Associated Symptoms: Reports: Confusion, Malaise, Weakness. Denies: Chest Pain , Cough denies pain Pain Score (Numeric/FACES): 0 - Related Data Allergies Allergy/AdvReac Type Severity Reaction Status Date / Time Penicillins Allergy Rash Verified 12/01/18 00:10 Home Meds: Home Meds Acetaminophen [Tylenol] 650 mg PO BID 11/16/18 [History] Potassium Chloride [Klor-Con M20] 20 meq PO DAILY tab.er 11/16/18 [Rx] Past Medical History HEENT History: Reports: Impaired Vision Cardiovascular History: Reports: Hypertension Genitourinary History: Reports: Urostomy Musculoskeletal History: Reports: Back Pain, Chronic, Other (See Below) Other Musculoskeletal History: closed compression of second lumbar Oncologic (Cancer) History: Reports: Colon, Lung - Infectious Disease History Infectious Disease History: Reports: Chicken Pox, Measles, Mumps, Shingles - Past Surgical History Respiratory Surgical History: Reports: Lung Biopsies, Other (See Below) Other Respiratory Surgeries/Procedures: recently done with lung ca treatment GI Surgical History: Reports: Colostomy, Other (See Below) Other GI Surgeries/Procedures: colon ca Social & Family History - Family History Family Medical History: Noncontributory - Caffeine Use Caffeine Use: Reports: Coffee ED ROS GENERAL - Review of Systems Review Of Systems: See Below Constitutional: Reports: Malaise Respiratory: Denies: Shortness of Breath Cardiovascular: Denies: Chest Pain GI/Abdominal: Denies: Abdominal Pain, Nausea, Vomiting : Reports: Other (Urostomy bag is leaking) Skin: Reports: Bruising (Widespread bruising on his arms) Neurological: Denies: Headache Psychiatric: Reports: Confusion ED EXAM, GENERAL - Physical Exam Exam: See Below Exam Limited By: No Limitations General Appearance: Alert, No Apparent Distress Eye Exam: Bilateral Eye: EOMI Head: Atraumatic Neck: Supple, Non-Tender Respiratory/Chest: Lungs Clear Cardiovascular: Regular Rate, Rhythm. No: Extra Beats GI/Abdominal: Soft, Non-Tender Extremities: No: Pedal Edema Neurological: Confused, Slow to Respond Psychiatric: Depressed Mood, Flat Affect Skin Exam: Warm, Dry, Other (some bruising on the arms) Course - Vital Signs Last Recorded V/S: Last Vital Signs Temp 98.8 F 11/30/18 23:37 Pulse 71 11/30/18 23:37 Resp 14 11/30/18 23:37 BP 147/71 H 11/30/18 23:37 Pulse Ox 97 11/30/18 23:37 - Orders/Labs/Meds Orders: Active Orders 24 hr Category Date Time Status CULTURE BLOOD [BC] Urgent Lab 11/30/18 23:40 Received CULTURE BLOOD [BC] Urgent Lab 11/30/18 23:50 Received CULTURE URINE [RM] Stat Lab 12/01/18 00:47 Received Sodium Chloride 0.9% [Normal Saline] 1,000 ml Med 12/01/18 00:30 Active IV ASDIRECTED Blood Culture x2 Reflex Set [OM.PC] Urgent Oth 11/30/18 23:32 Ordered Medication Orders Sodium Chloride (Normal Saline) 1,000 mls @ 250 mls/hr IV ASDIRECTED JOHANA Last Admin: 12/01/18 00:35 Dose: 250 mls/hr Sodium Chloride (Normal Saline) 1,000 mls @ 125 mls/hr IV ASDIRECTED JOHANA Labs: Laboratory Tests 11/30/18 11/30/18 12/01/18 Range/Units 23:31 23:31 00:55 WBC 6.4 (4.5-11.0) K/uL RBC 3.87 L (4.30-5.90) M/uL Hgb 12.6 (12.0-15.0) g/dL Hct 33.0 L (40.0-54.0) % MCV 85 (80-98) fL MCH 33 H (27-31) pg MCHC 38 H (32-36) % Plt Count 200 (150-400) K/uL Neut % (Auto) 84 H (36-66) % Lymph % (Auto) 5 L (24-44) % [place] % (Auto) 10 H (2-6) % Eos % (Auto) 1 L (2-4) % Baso % (Auto) 0 (0-1) % Sodium 117 L* (140-148) mmol/L Potassium 4.1 (3.6-5.2) mmol/L Chloride 82 L (100-108) mmol/L Carbon Dioxide 28 (21-32) mmol/L Anion Gap 11.1 (5.0-14.0) mmol/L BUN 13 (7-18) mg/dL Creatinine 0.6 L (0.8-1.3) mg/dL Est Cr Clr Drug Dosing 83.79 mL/min Estimated GFR (MDRD) > 60 (>60) Glucose 114 H (74-106) mg/dL Calcium 9.0 (8.5-10.1) mg/dL Total Bilirubin 1.0 (0.2-1.0) mg/dL AST 26 (15-37) U/L ALT 19 (12-78) U/L Alkaline Phosphatase 109 (46-116) U/L Total Protein 6.9 (6.4-8.2) g/dL Albumin 3.2 L (3.4-5.0) g/dL Globulin 3.7 H (2.3-3.5) g/dL Albumin/Globulin Ratio 0.9 L (1.2-2.2) Urine Color Yellow Urine Appearance Cloudy Urine pH 6.0 (4.5-8.0) Ur Specific [place] 1.010 (1.008-1.030) Urine Protein Trace (NEGATIVE) mg/dL Urine Glucose (UA) Normal (NEGATIVE) mg/dL Urine Ketones 15 H (NEGATIVE) mg/dL Urine Occult Blood Trace (NEGATIVE) Urine Nitrite Negative (NEGAITVE) Urine Bilirubin Small (NEGATIVE) Urine Urobilinogen 1 (NORMAL) mg/dL Ur Leukocyte Esterase Negative (NEGATIVE) Urine RBC 0-5 (0-5) Urine WBC 5-10 H (0-5) Ur Epithelial Cells Few Amorphous Sediment Few Urine Bacteria Rare Urine Mucus Moderate Meds: Medications Generic Name Dose Route Start Last Admin Trade Name Cheryl PRN Reason Stop Dose Admin Sodium Chloride 1,000 mls @ 250 mls/hr 12/01/18 00:30 12/01/18 00:35 Normal Saline IV 250 mls/hr ASDIRECTED JOHANA Administration Sodium Chloride 1,000 mls @ 125 mls/hr 12/01/18 02:00 Normal Saline IV ASDIRECTED JOHANA - Re-Assessments/Exams Free Text/Narrative Re-Assessment/Exam: 12/01/18 01:19 UA was obtained and showed no significant infection, CBC was relatively normal but his sodium was only 117 compared to 134 just a week ago. An IV was started and he was given 250 mL of normal saline an hour and his primary provider Dr. Caleb Palomares was called for admission. The plan is to stabilize his electrolytes and reassessed tomorrow. Departure - Departure Time of Disposition: 02:11 Disposition: Admitted As Inpatient 65 Condition: Fair Clinical Impression: Hyponatremia, Confusion, Weakness - Discharge Information - My Orders Last 24 Hours: My Active Orders 11/30/18 23:32 Blood Culture x2 Reflex Set [OM.PC] Urgent 11/30/18 23:40 CULTURE BLOOD [BC] Urgent 11/30/18 23:50 CULTURE BLOOD [BC] Urgent 12/01/18 00:30 Sodium Chloride 0.9% [Normal Saline] 1,000 ml IV ASDIRECTED 12/01/18 00:47 CULTURE URINE [RM] Stat - Assessment/Plan Last 24 Hours: My Active Orders 11/30/18 23:32 Blood Culture x2 Reflex Set [OM.PC] Urgent 11/30/18 23:40 CULTURE BLOOD [BC] Urgent 11/30/18 23:50 CULTURE BLOOD [BC] Urgent 12/01/18 00:30 Sodium Chloride 0.9% [Normal Saline] 1,000 ml IV ASDIRECTED 12/01/18 00:47 CULTURE URINE [RM] Stat
[2018-12-01] MEDS ORDERED: Sodium Chloride 0.9% 1,000 ML IV SCH (00:30)
[2018-12-01] MEDS: Haloperidol Lactate 5 MG/ML SDV IVPUSH PRN ×3 (02:47→19:36)
[2018-12-01] MEDS: Sodium Chloride 0.9% 1,000 ML IV SCH ×4 (02:51→21:49)
[2018-12-01] MEDS: SODIUM CHLORIDE 1 GM PO SCH ×3 (10:31→20:49)
--- NOTE | 2018-12-01 13:33 | PCM.HP ---
H&P History of Present Illness - General Date of Service: 12/01/18 Admit Problem/Dx: Admission Diagnosis/Problem Admission Diagnosis/Problem Hyponatremia confusion, hyponatremia Source of Information: Family History Limitations: Reports: Altered Mental Status, Combative/Threatening (Bradley Rizzo is a dietary sent [place]azar). Denies: Intoxication - History of Present Illness Initial Comments - Free Text/Narative: Milo has been having increased problems with dementia to a point review can hardly function and is worse after he has radiation to his brain. 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 He was brought in by ambulance and a poor hygienic condition and the family can't take more. He hallucinates and has loss of his body functions. he has an extensive history of medical problems. He is confused and having hard time ambulating and unable to take care of himself. Onset of Symptoms: Reports: Gradual denies pain Pain Score (Numeric/FACES): 0 Back Pain Score (Numeric/FACES): 6 - Related Data Allergies/Adverse Reactions: Allergies Allergy/AdvReac Type Severity Reaction Status Date / Time Penicillins Allergy Rash Verified 12/01/18 00:10 Home Medications: Home Meds Acetaminophen [Tylenol] 650 mg PO BID 11/16/18 [History] Potassium Chloride [Klor-Con M20] 20 meq PO DAILY tab.er 11/16/18 [Rx] Past Medical History HEENT History: Reports: Impaired Vision Cardiovascular History: Reports: Hypertension Genitourinary History: Reports: Urostomy Musculoskeletal History: Reports: Back Pain, Chronic, Other (See Below) Other Musculoskeletal History: closed compression of second lumbar Oncologic (Cancer) History: Reports: Colon, Lung - Infectious Disease History Infectious Disease History: Reports: Chicken Pox, Measles, Mumps, Shingles - Past Surgical History Respiratory Surgical History: Reports: Lung Biopsies, Other (See Below) Other Respiratory Surgeries/Procedures: recently done with lung ca treatment GI Surgical History: Reports: Colostomy, Other (See Below) Other GI Surgeries/Procedures: colon ca Social & Family History - Family History Family Medical History: Noncontributory - Tobacco Use Smoking Status *Q: Unknown Ever Smoked - Caffeine Use Caffeine Use: Reports: Coffee H&P Review of Systems - Review of Systems: Review Of Systems: See Below General: Reports: Weakness, Decreased Appetite, Weight Loss HEENT: Reports: No Symptoms Pulmonary: Reports: No Symptoms Cardiovascular: Reports: No Symptoms Gastrointestinal: Reports: Diarrhea Genitourinary: Reports: No Symptoms Musculoskeletal: Reports: Muscle Pain, Muscle Stiffness Psychiatric: Reports: Confusion, Hallucinations Neurological: Reports: Confusion, Trouble Speaking, Difficulty Walking, Weakness , Gait Disturbance Exam - Exam Exam: See Below - Vital Signs Vital Signs: Last Vital Signs Temp 98.1 F 12/01/18 10:51 Pulse 63 12/01/18 10:51 Resp 12 12/01/18 10:51 BP 145/66 H 12/01/18 10:51 Pulse Ox 100 12/01/18 10:51 Weight: 143 lb 12.815 oz - Exam General: Moderate Distress, Lethargic HEENT: PERRLA, Hearing Intact, Mucosa Moist & [place], Nares Patent, Normal Nasal Septum, Posterior Pharynx Clear, Conjunctiva Clear, EOMI, EACs Clear, TMs Clear Lungs: Clear to Auscultation, Normal Respiratory Effort Cardiovascular: Regular Rate, Regular Rhythm GI/Abdominal Exam: Soft Back Exam: Vertebral Tenderness (anterior flexion of his upper thoracic spine with pain in the L1-2 area) Peripheral Pulses: 1+: Radial (L), Radial (R) Skin: Warm, Dry, Intact Neuro Extensive - Mental Status: Disorientation to Place, Inattentive DTR: 1+: Bicep (L), Bicep (R) Psychiatric: Hallucinations - Patient Data Lab Results Last 24 hrs: Laboratory Results - last 24 hr 11/30/18 11/30/18 12/01/18 Range/Units 23:31 23:31 00:55 WBC 6.4 (4.5-11.0) K/uL RBC 3.87 L (4.30-5.90) M/uL Hgb 12.6 (12.0-15.0) g/dL Hct 33.0 L (40.0-54.0) % MCV 85 (80-98) fL MCH 33 H (27-31) pg MCHC 38 H (32-36) % Plt Count 200 (150-400) K/uL Neut % (Auto) 84 H (36-66) % Lymph % (Auto) 5 L (24-44) % [place] % (Auto) 10 H (2-6) % Eos % (Auto) 1 L (2-4) % Baso % (Auto) 0 (0-1) % Sodium 117 L* (140-148) mmol/L Potassium 4.1 (3.6-5.2) mmol/L Chloride 82 L (100-108) mmol/L Carbon Dioxide 28 (21-32) mmol/L Anion Gap 11.1 (5.0-14.0) mmol/L BUN 13 (7-18) mg/dL Creatinine 0.6 L (0.8-1.3) mg/dL Est Cr Clr Drug Dosing 83.79 mL/min Estimated GFR (MDRD) > 60 (>60) Glucose 114 H (74-106) mg/dL Calcium 9.0 (8.5-10.1) mg/dL Total Bilirubin 1.0 (0.2-1.0) mg/dL AST 26 (15-37) U/L ALT 19 (12-78) U/L Alkaline Phosphatase 109 (46-116) U/L Total Protein 6.9 (6.4-8.2) g/dL Albumin 3.2 L (3.4-5.0) g/dL Globulin 3.7 H (2.3-3.5) g/dL Albumin/Globulin Ratio 0.9 L (1.2-2.2) Urine Color Yellow Urine Appearance Cloudy Urine pH 6.0 (4.5-8.0) Ur Specific [place] 1.010 (1.008-1.030) Urine Protein Trace (NEGATIVE) mg/dL Urine Glucose (UA) Normal (NEGATIVE) mg/dL Urine Ketones 15 H (NEGATIVE) mg/dL Urine Occult Blood Trace (NEGATIVE) Urine Nitrite Negative (NEGAITVE) Urine Bilirubin Small (NEGATIVE) Urine Urobilinogen 1 (NORMAL) mg/dL Ur Leukocyte Esterase Negative (NEGATIVE) Urine RBC 0-5 (0-5) Urine WBC 5-10 H (0-5) Ur Epithelial Cells Few Amorphous Sediment Few Urine Bacteria Rare Urine Mucus Moderate 12/01/18 Range/Units 05:40 WBC (4.5-11.0) K/uL RBC (4.30-5.90) M/uL Hgb (12.0-15.0) g/dL Hct (40.0-54.0) % MCV (80-98) fL MCH (27-31) pg MCHC (32-36) % Plt Count (150-400) K/uL Neut % (Auto) (36-66) % Lymph % (Auto) (24-44) % [place] % (Auto) (2-6) % Eos % (Auto) (2-4) % Baso % (Auto) (0-1) % Sodium 119 L* (140-148) mmol/L Potassium 4.0 (3.6-5.2) mmol/L Chloride 85 L (100-108) mmol/L Carbon Dioxide 28 (21-32) mmol/L Anion Gap 10.0 (5.0-14.0) mmol/L BUN 10 (7-18) mg/dL Creatinine 0.6 L (0.8-1.3) mg/dL Est Cr Clr Drug Dosing 83.85 mL/min Estimated GFR (MDRD) > 60 (>60) Glucose 94 (74-106) mg/dL Calcium 8.6 (8.5-10.1) mg/dL Total Bilirubin (0.2-1.0) mg/dL AST (15-37) U/L ALT (12-78) U/L Alkaline Phosphatase (46-116) U/L Total Protein (6.4-8.2) g/dL Albumin (3.4-5.0) g/dL Globulin (2.3-3.5) g/dL Albumin/Globulin Ratio (1.2-2.2) Urine Color Urine Appearance Urine pH (4.5-8.0) Ur Specific [place] (1.008-1.030) Urine Protein (NEGATIVE) mg/dL Urine Glucose (UA) (NEGATIVE) mg/dL Urine Ketones (NEGATIVE) mg/dL Urine Occult Blood (NEGATIVE) Urine Nitrite (NEGAITVE) Urine Bilirubin (NEGATIVE) Urine Urobilinogen (NORMAL) mg/dL Ur Leukocyte Esterase (NEGATIVE) Urine RBC (0-5) Urine WBC (0-5) Ur Epithelial Cells Amorphous Sediment Urine Bacteria Urine Mucus Result Diagrams: 12/03/18 05:49 12/03/18 05:49 Problem List Initiated/Reviewed/Updated: Yes Orders Last 24hrs: Active Orders 24 hr Category Date Time Status Admission Status [Patient Status] [ADT] Routine ADT 12/01/18 01:30 Active Activity as Tolerated [RC] .Routine Care 12/01/18 01:53 Active Vital Signs [RC] Q4H Care 12/01/18 03:00 Active Consult to Case Management/Clinical Research Management Associate [CONS] Cons 12/01/18 03:14 Active Routine Regular Diet [DIET] Diet 12/01/18 Lunch Active CULTURE BLOOD [BC] Urgent Lab 11/30/18 23:40 Received CULTURE BLOOD [BC] Urgent Lab 11/30/18 23:50 Received CULTURE URINE [RM] Stat Lab 12/01/18 00:47 Received Haloperidol Lactate [Haldol] Med 12/01/18 02:36 Active 2 - 5 mg IVPUSH Q1H PRN Memantine [Namenda] Med 12/01/18 20:00 Active 20 mg PO DAILY@1999 Patient's Own Medication [Ptom] Med 12/01/18 09:30 Active 0 each PO TID Sodium Chloride 0.9% [Normal Saline] 1,000 ml Med 12/01/18 02:00 Active IV ASDIRECTED Air Mattress [Pressure Reduction Mattress] [OM.PC] Oth 12/01/18 02:06 Ordered Routine Blood Culture x2 Reflex Set [OM.PC] Urgent Oth 11/30/18 23:32 Ordered Medication Orders Haloperidol Lactate (Haldol) 2 - 5 mg IVPUSH Q1H PRN PRN Reason: Agitation Last Admin: 12/01/18 02:47 Dose: 2 mg Sodium Chloride (Normal Saline) 1,000 mls @ 125 mls/hr IV ASDIRECTED JOHANA Last Admin: 12/01/18 06:00 Dose: 125 mls/hr Infusion: 12/01/18 06:00 Dose: 125 mls/hr Admin: 12/01/18 02:51 Dose: 125 mls/hr Memantine (Namenda) 20 mg PO DAILY@1999 [facility] Sodium Chloride 1gm (TabletPom) 0 each PO TID JOHANA Last Admin: 12/01/18 10:31 Dose: 1 each Assessment/Plan Comment:: Assessment/plan: #1. Hyponatremia. His sodium is 117 this is secondary to his hormonal effect of his cancer this will need be corrected slowly. I feel that IV with hypertonic saline is not indicated. #2. Small cell lung cancer with metastasis. He's been seen by the oncologist and he did get radiation to his head yesterday and this throws them off monthly that he's been gradually getting worse recently. #3. Hypotension/hypertension. he has been on fludrocortisone in the past but not at the present has his blood pressure is actually elevated at 147 systolic. #4. Dementia: continue with Namenda #5. Status post bladder cancer. He has a urostomy bag in place. #6. Hyperlipidemia. #7. Status post pulmonary embolism. this is in the past and is not active at the present time. #8. Compression fracture lumbar spine: This is being evaluated for possible vertebral plasty. His white count is 6.4 and hemoglobin 12.6 with a creatinine 0.6.
[2018-12-01] MEDS: Memantine 10 MG Tab PO SCH (19:23)
[2018-12-02] MEDS: Haloperidol Lactate 5 MG/ML SDV IVPUSH PRN ×4 (02:12→23:44)
[2018-12-02] MEDS: Ibuprofen 800 MG Tab PO PRN ×2 (02:57→21:31)
[2018-12-02] MEDS: Sodium Chloride 0.9% 1,000 ML IV SCH ×3 (06:07→21:31)
[2018-12-02] MEDS: Lisinopril 20 MG Tab PO SCH (08:03)
[2018-12-02] MEDS: SODIUM CHLORIDE 1 GM PO SCH ×3 (08:03→20:01)
[2018-12-02] MEDS: Memantine 10 MG Tab PO SCH (20:01)
[2018-12-02] MEDS: Melatonin 3 MG Tab PO PRN (21:32)
[2018-12-03] MEDS: Sodium Chloride 0.9% 1,000 ML IV SCH (05:44)
[2018-12-03] MEDS: Haloperidol Lactate 5 MG/ML SDV IVPUSH PRN ×2 (08:55→14:56)
[2018-12-03] MEDS: SODIUM CHLORIDE 1 GM PO SCH ×3 (08:59→20:36)
[2018-12-03] MEDS: Doxazosin 4 MG Tab PO SCH ×2 (09:00→09:04)
[2018-12-03] MEDS: Lisinopril 20 MG Tab PO SCH (09:00)
[2018-12-03] MEDS: Potassium Chloride 20 MEQ Tab.ER PO SCH ×2 (09:01→20:37)
[2018-12-03] MEDS ORDERED: Sodium Chloride 0.9% 1,000 ML IV SCH (11:00)
--- NOTE | 2018-12-03 11:50 | PCM.PN ---
- General Info Date of Service: 12/02/18 Subjective Update: He is confused unable to answer any questions with certainty. Functional Status: Reports: Pain Controlled - Review of Systems General: Reports: Weakness, Fatigue HEENT: Reports: No Symptoms Pulmonary: Reports: No Symptoms Cardiovascular: Reports: No Symptoms Gastrointestinal: Reports: No Symptoms Genitourinary: Reports: No Symptoms Musculoskeletal: Reports: Back Pain Neurological: Reports: Confusion, Difficulty Walking, Weakness, Gait Disturbance Psychiatric: Reports: No Symptoms - Patient Data Vitals - Most Recent: Last Vital Signs Temp 96 F 12/03/18 11:13 Pulse 59 L 12/03/18 11:13 Resp 16 12/03/18 11:13 BP 138/61 12/03/18 11:13 Pulse Ox 95 12/03/18 11:13 Weight - Most Recent: 143 lb 12.815 oz I&O - Last 24 Hours: Intake & Output 12/02/18 12/03/18 12/03/18 22:59 06:59 14:59 Output Total 700 3300 Balance -700 -3300 Lab Results Last 24 Hours: Laboratory Results - last 24 hr 12/03/18 12/03/18 Range/Units 05:49 05:49 WBC 4.0 L (4.5-11.0) K/uL RBC 3.40 L (4.30-5.90) M/uL Hgb 11.0 L (12.0-15.0) g/dL Hct 28.9 L (40.0-54.0) % MCV 85 (80-98) fL MCH 32 H (27-31) pg MCHC 38 H (32-36) % Plt Count 169 (150-400) K/uL Neut % (Auto) 81 H (36-66) % Lymph % (Auto) 5 L (24-44) % [place] % (Auto) 12 H (2-6) % Eos % (Auto) 1 L (2-4) % Baso % (Auto) 0 (0-1) % Sodium 118 L* (140-148) mmol/L Potassium 3.0 L (3.6-5.2) mmol/L Chloride 83 L (100-108) mmol/L Carbon Dioxide 28 (21-32) mmol/L Anion Gap 10.0 (5.0-14.0) mmol/L BUN 4 L (7-18) mg/dL Creatinine 0.4 L (0.8-1.3) mg/dL Est Cr Clr Drug Dosing 129.10 mL/min Estimated GFR (MDRD) > 60 (>60) Glucose 111 H (74-106) mg/dL Calcium 8.4 L (8.5-10.1) mg/dL [place] Results Last 24 Hours: Microbiology 12/01/18 00:47 Urine Culture - Final Urine, Urostromy Klebsiella Pneumonia Ss Pneumo Escherichia Coli 11/30/18 23:50 Aerobic Blood Culture - Preliminary Blood - Arm, Right NO GROWTH AFTER 2 DAYS Anaerobic Blood Culture - Preliminary NO GROWTH AFTER 2 DAYS 11/30/18 23:40 Aerobic Blood Culture - Preliminary Blood - Arm, Left NO GROWTH AFTER 2 DAYS Anaerobic Blood Culture - Preliminary NO GROWTH AFTER 2 DAYS Med Orders - Current: Current Medications Doxazosin Mesylate (Cardura) 2 mg PO DAILY [facility] Last Admin: 12/03/18 09:04 Dose: Not Given Haloperidol Lactate (Haldol) 2 - 5 mg IVPUSH Q1H PRN PRN Reason: Agitation Last Admin: 12/03/18 08:55 Dose: 5 mg Sodium Chloride (Normal Saline) 1,000 mls @ 125 mls/hr IV ASDIRECTED [facility] Last Admin: 12/03/18 05:44 Dose: 125 mls/hr Ibuprofen (Motrin) 800 mg PO Q8H PRN PRN Reason: Pain Last Admin: 12/02/18 21:31 Dose: 800 mg Lisinopril (Prinivil) 20 mg PO DAILY [facility] Last Admin: 12/03/18 09:00 Dose: 20 mg Melatonin (Melatonin) 9 mg PO BEDTIME PRN PRN Reason: Insomnia Last Admin: 12/02/18 21:32 Dose: 9 mg Memantine (Namenda) 20 mg PO DAILY@1999 [facility] Last Admin: 12/02/18 20:01 Dose: 20 mg Sodium Chloride 1gm (TabletPom) 0 each PO TID [facility] Last Admin: 12/03/18 08:59 Dose: 3 each Potassium Chloride (Klor-Con M20) 20 meq PO BID [facility] Last Admin: 12/03/18 09:01 Dose: 20 meq Discontinued Medications Sodium Chloride (Normal Saline) 1,000 mls @ 250 mls/hr IV ASDIRECTED [facility] Last Admin: 12/01/18 00:35 Dose: 250 mls/hr - Exam General: Cooperative, Mild Distress HEENT: Pupils Equal, Pupils Reactive, EOMI, Mucous Membr. Moist/[place] Neck: Supple Lungs: Clear to Auscultation, Normal Respiratory Effort Cardiovascular: Regular Rate, Regular Rhythm GI/Abdominal Exam: Normal Bowel Sounds, Soft, Non-Tender, No Organomegaly, No Distention, No Abnormal Bruit, No Mass, Pelvis Stable Extremities: Normal Inspection, Normal Range of Motion, Non-Tender, No Pedal Edema, Normal Capillary Refill Peripheral Pulses: 1+: Radial (L), Radial (R) Skin: Warm, Dry, Intact Psy/Mental Status: Depressed - Problem List Review Problem List Initiated/Reviewed/Updated: Yes - My Orders Last 24 Hours: My Active Orders 12/02/18 21:02 Melatonin 9 mg PO BEDTIME PRN 12/02/18 Lunch Mechanical Soft Diet [DIET] 12/03/18 09:00 Doxazosin [Cardura] 2 mg PO DAILY Potassium Chloride [Klor-Con M20] 20 meq PO BID 12/04/18 05:11 BASIC METABOLIC PANEL,BMP [CHEM] DAILY CBC WITH AUTO DIFF [HEME] DAILY 12/05/18 05:11 BASIC METABOLIC PANEL,BMP [CHEM] DAILY CBC WITH AUTO DIFF [HEME] DAILY 12/06/18 05:11 BASIC METABOLIC PANEL,BMP [CHEM] DAILY CBC WITH AUTO DIFF [HEME] DAILY 12/07/18 05:11 BASIC METABOLIC PANEL,BMP [CHEM] DAILY CBC WITH AUTO DIFF [HEME] DAILY 12/08/18 05:11 BASIC METABOLIC PANEL,BMP [CHEM] DAILY CBC WITH AUTO DIFF [HEME] DAILY 12/09/18 05:11 BASIC METABOLIC PANEL,BMP [CHEM] DAILY CBC WITH AUTO DIFF [HEME] DAILY 12/10/18 05:11 BASIC METABOLIC PANEL,BMP [CHEM] DAILY CBC WITH AUTO DIFF [HEME] DAILY 12/11/18 05:11 BASIC METABOLIC PANEL,BMP [CHEM] DAILY CBC WITH AUTO DIFF [HEME] DAILY 12/12/18 05:11 BASIC METABOLIC PANEL,BMP [CHEM] DAILY CBC WITH AUTO DIFF [HEME] DAILY 12/13/18 05:11 BASIC METABOLIC PANEL,BMP [CHEM] DAILY CBC WITH AUTO DIFF [HEME] DAILY 12/14/18 05:11 BASIC METABOLIC PANEL,BMP [CHEM] DAILY CBC WITH AUTO DIFF [HEME] DAILY 12/15/18 05:11 BASIC METABOLIC PANEL,BMP [CHEM] DAILY CBC WITH AUTO DIFF [HEME] DAILY 12/16/18 05:11 BASIC METABOLIC PANEL,BMP [CHEM] DAILY CBC WITH AUTO DIFF [HEME] DAILY 12/17/18 05:11 BASIC METABOLIC PANEL,BMP [CHEM] DAILY CBC WITH AUTO DIFF [HEME] DAILY 12/18/18 05:11 BASIC METABOLIC PANEL,BMP [CHEM] DAILY CBC WITH AUTO DIFF [HEME] DAILY 12/19/18 05:11 BASIC METABOLIC PANEL,BMP [CHEM] DAILY CBC WITH AUTO DIFF [HEME] DAILY 12/20/18 05:11 BASIC METABOLIC PANEL,BMP [CHEM] DAILY CBC WITH AUTO DIFF [HEME] DAILY 12/21/18 05:11 BASIC METABOLIC PANEL,BMP [CHEM] DAILY CBC WITH AUTO DIFF [HEME] DAILY 12/22/18 05:11 BASIC METABOLIC PANEL,BMP [CHEM] DAILY CBC WITH AUTO DIFF [HEME] DAILY - Plan Plan:: Assessment/plan: #1. Hyponatremia. His sodium is 119 this is secondary to his hormonal effect of his cancer this will need be corrected slowly. I have increased his salt pills to 6/day. #2. Small cell lung cancer with metastasis. He's been seen by the oncologist and he did get radiation to his head yesterday and this throws them off monthly that he's been gradually getting worse recently. #3. Hypertension. BP elevated have started on lisinopril. #4. Dementia: continue with Namenda #5. Status post bladder cancer. He has a urostomy bag in place. #6. Hyperlipidemia. #7. Status post pulmonary embolism. this is in the past and is not active at the present time. #8. Compression fracture lumbar spine: This is being evaluated for possible vertebral plasty.
--- NOTE | 2018-12-03 11:56 | PCM.PN ---
- General Info Date of Service: 12/03/18 Subjective Update: He is more confused today than yesterday. Functional Status: Reports: Pain Controlled - Review of Systems General: Reports: Weakness HEENT: Reports: No Symptoms Pulmonary: Reports: No Symptoms Cardiovascular: Reports: No Symptoms Gastrointestinal: Reports: No Symptoms Genitourinary: Reports: No Symptoms Musculoskeletal: Reports: Back Pain Skin: Reports: No Symptoms Neurological: Reports: No Symptoms Psychiatric: Reports: No Symptoms - Patient Data Vitals - Most Recent: Last Vital Signs Temp 96 F 12/03/18 11:13 Pulse 59 L 12/03/18 11:13 Resp 16 12/03/18 11:13 BP 138/61 12/03/18 11:13 Pulse Ox 95 12/03/18 11:13 Weight - Most Recent: 143 lb 12.815 oz I&O - Last 24 Hours: Intake & Output 12/02/18 12/03/18 12/03/18 22:59 06:59 14:59 Output Total 700 3300 Balance -700 -3300 Lab Results Last 24 Hours: Laboratory Results - last 24 hr 12/03/18 12/03/18 Range/Units 05:49 05:49 WBC 4.0 L (4.5-11.0) K/uL RBC 3.40 L (4.30-5.90) M/uL Hgb 11.0 L (12.0-15.0) g/dL Hct 28.9 L (40.0-54.0) % MCV 85 (80-98) fL MCH 32 H (27-31) pg MCHC 38 H (32-36) % Plt Count 169 (150-400) K/uL Neut % (Auto) 81 H (36-66) % Lymph % (Auto) 5 L (24-44) % [place] % (Auto) 12 H (2-6) % Eos % (Auto) 1 L (2-4) % Baso % (Auto) 0 (0-1) % Sodium 118 L* (140-148) mmol/L Potassium 3.0 L (3.6-5.2) mmol/L Chloride 83 L (100-108) mmol/L Carbon Dioxide 28 (21-32) mmol/L Anion Gap 10.0 (5.0-14.0) mmol/L BUN 4 L (7-18) mg/dL Creatinine 0.4 L (0.8-1.3) mg/dL Est Cr Clr Drug Dosing 129.10 mL/min Estimated GFR (MDRD) > 60 (>60) Glucose 111 H (74-106) mg/dL Calcium 8.4 L (8.5-10.1) mg/dL [facility] Results Last 24 Hours: Microbiology 12/01/18 00:47 Urine Culture - Final Urine, Urostromy Klebsiella Pneumonia Ss Pneumo Escherichia Coli 11/30/18 23:50 Aerobic Blood Culture - Preliminary Blood - Arm, Right NO GROWTH AFTER 2 DAYS Anaerobic Blood Culture - Preliminary NO GROWTH AFTER 2 DAYS 11/30/18 23:40 Aerobic Blood Culture - Preliminary Blood - Arm, Left NO GROWTH AFTER 2 DAYS Anaerobic Blood Culture - Preliminary NO GROWTH AFTER 2 DAYS Med Orders - Current: Current Medications Doxazosin Mesylate (Cardura) 2 mg PO DAILY [facility] Last Admin: 12/03/18 09:04 Dose: Not Given Haloperidol Lactate (Haldol) 2 - 5 mg IVPUSH Q1H PRN PRN Reason: Agitation Last Admin: 12/03/18 08:55 Dose: 5 mg Sodium Chloride (Normal Saline) 1,000 mls @ 125 mls/hr IV ASDIRECTED [facility] Last Admin: 12/03/18 05:44 Dose: 125 mls/hr Ibuprofen (Motrin) 800 mg PO Q8H PRN PRN Reason: Pain Last Admin: 12/02/18 21:31 Dose: 800 mg Lisinopril (Prinivil) 20 mg PO DAILY [facility] Last Admin: 12/03/18 09:00 Dose: 20 mg Melatonin (Melatonin) 9 mg PO BEDTIME PRN PRN Reason: Insomnia Last Admin: 12/02/18 21:32 Dose: 9 mg Memantine (Namenda) 20 mg PO DAILY@1999 [facility] Last Admin: 12/02/18 20:01 Dose: 20 mg Sodium Chloride 1gm (TabletPom) 0 each PO TID [facility] Last Admin: 12/03/18 08:59 Dose: 3 each Potassium Chloride (Klor-Con M20) 20 meq PO BID [facility] Last Admin: 12/03/18 09:01 Dose: 20 meq Discontinued Medications Sodium Chloride (Normal Saline) 1,000 mls @ 250 mls/hr IV ASDIRECTED [facility] Last Admin: 12/01/18 00:35 Dose: 250 mls/hr - Exam General: Mild Distress HEENT: Pupils Equal, Pupils Reactive, EOMI, Mucous Membr. Moist/[place] Neck: Supple Lungs: Clear to Auscultation, Normal Respiratory Effort Cardiovascular: Regular Rate, Regular Rhythm Back Exam: Vertebral Tenderness Extremities: Non-Tender Peripheral Pulses: 1+: Radial (L), Radial (R) Skin: Warm, Dry, Intact Psy/Mental Status: Depressed, Agitated - Problem List Review Problem List Initiated/Reviewed/Updated: Yes - My Orders Last 24 Hours: My Active Orders 12/02/18 21:02 Melatonin 9 mg PO BEDTIME PRN 12/02/18 Lunch Mechanical Soft Diet [DIET] 12/03/18 09:00 Doxazosin [Cardura] 2 mg PO DAILY Potassium Chloride [Klor-Con M20] 20 meq PO BID 12/04/18 05:11 BASIC METABOLIC PANEL,BMP [CHEM] DAILY CBC WITH AUTO DIFF [HEME] DAILY 12/05/18 05:11 BASIC METABOLIC PANEL,BMP [CHEM] DAILY CBC WITH AUTO DIFF [HEME] DAILY 12/06/18 05:11 BASIC METABOLIC PANEL,BMP [CHEM] DAILY CBC WITH AUTO DIFF [HEME] DAILY 12/07/18 05:11 BASIC METABOLIC PANEL,BMP [CHEM] DAILY CBC WITH AUTO DIFF [HEME] DAILY 12/08/18 05:11 BASIC METABOLIC PANEL,BMP [CHEM] DAILY CBC WITH AUTO DIFF [HEME] DAILY 12/09/18 05:11 BASIC METABOLIC PANEL,BMP [CHEM] DAILY CBC WITH AUTO DIFF [HEME] DAILY 12/10/18 05:11 BASIC METABOLIC PANEL,BMP [CHEM] DAILY CBC WITH AUTO DIFF [HEME] DAILY 12/11/18 05:11 BASIC METABOLIC PANEL,BMP [CHEM] DAILY CBC WITH AUTO DIFF [HEME] DAILY 12/12/18 05:11 BASIC METABOLIC PANEL,BMP [CHEM] DAILY CBC WITH AUTO DIFF [HEME] DAILY 12/13/18 05:11 BASIC METABOLIC PANEL,BMP [CHEM] DAILY CBC WITH AUTO DIFF [HEME] DAILY 12/14/18 05:11 BASIC METABOLIC PANEL,BMP [CHEM] DAILY CBC WITH AUTO DIFF [HEME] DAILY 12/15/18 05:11 BASIC METABOLIC PANEL,BMP [CHEM] DAILY CBC WITH AUTO DIFF [HEME] DAILY 12/16/18 05:11 BASIC METABOLIC PANEL,BMP [CHEM] DAILY CBC WITH AUTO DIFF [HEME] DAILY 12/17/18 05:11 BASIC METABOLIC PANEL,BMP [CHEM] DAILY CBC WITH AUTO DIFF [HEME] DAILY 12/18/18 05:11 BASIC METABOLIC PANEL,BMP [CHEM] DAILY CBC WITH AUTO DIFF [HEME] DAILY 12/19/18 05:11 BASIC METABOLIC PANEL,BMP [CHEM] DAILY CBC WITH AUTO DIFF [HEME] DAILY 12/20/18 05:11 BASIC METABOLIC PANEL,BMP [CHEM] DAILY CBC WITH AUTO DIFF [HEME] DAILY 12/21/18 05:11 BASIC METABOLIC PANEL,BMP [CHEM] DAILY CBC WITH AUTO DIFF [HEME] DAILY 12/22/18 05:11 BASIC METABOLIC PANEL,BMP [CHEM] DAILY CBC WITH AUTO DIFF [HEME] DAILY - Plan Plan:: Assessment/plan: #1. Hyponatremia. His sodium is 118 this is secondary to his hormonal effect of his cancer this will need be corrected slowly. I feel that IV with hypertonic saline is not indicated. Will decrease IV Fluids #2. Small cell lung cancer with metastasis. He's been seen by the oncologist and he did get radiation to his head yesterday and this throws them off monthly that he's been gradually getting worse recently. #3. Hypertension. BP is elevated 138\61 but refuses salt pills today and refused cardura. #4. Dementia: continue with Namenda #5. Status post bladder cancer. He has a urostomy bag in place. #6. Hyperlipidemia. #7. Status post pulmonary embolism. this is in the past and is not active at the present time. #8. Compression fracture lumbar spine: This is being evaluated for possible vertebral plasty. #9. UTI. Will treat with Levofloxacin. WBC stable and Hb 11.
[2018-12-03] MEDS: Levofloxacin/Dextrose 5%-Water 500 MG in Premix Bag 1 BAG IV SCH (12:48)
[2018-12-03] MEDS: Memantine 10 MG Tab PO SCH (20:37)
[2018-12-03] MEDS: Melatonin 3 MG Tab PO PRN (20:54)
[2018-12-04] MEDS: Ibuprofen 800 MG Tab PO PRN (05:45)
[2018-12-04] MEDS: Lisinopril 20 MG Tab PO SCH (08:38)
[2018-12-04] MEDS: Doxazosin 4 MG Tab PO SCH (08:41)
[2018-12-04] MEDS: SODIUM CHLORIDE 1 GM PO SCH ×3 (08:41→21:10)
[2018-12-04] MEDS: Potassium Chloride 20 MEQ Tab.ER PO SCH ×2 (08:41→21:09)
[2018-12-04] MEDS ORDERED: Bisacodyl 10 MG Supp RECTAL PRN (09:20)
[2018-12-04] MEDS: Haloperidol Lactate 5 MG/ML SDV IVPUSH PRN ×2 (09:22→16:33)
[2018-12-04] MEDS ORDERED: Bisacodyl 5 MG Tab PO ONE (10:00)
[2018-12-04] MEDS ORDERED: Polyethylene Glycol 3350 Powder 17 GM Packet PO ONE (10:00)
[2018-12-04] MEDS: Levofloxacin/Dextrose 5%-Water 500 MG in Premix Bag 1 BAG IV SCH (14:03)
--- NOTE | 2018-12-04 18:53 | PCM.PN ---
- General Info Date of Service: 12/04/18 Subjective Update: Mentally is deteriorating fast and unable to feed himself and is losing mental alertness rapidly. Functional Status: Reports: Pain Controlled - Review of Systems General: Reports: Weakness HEENT: Reports: No Symptoms Pulmonary: Reports: No Symptoms Cardiovascular: Reports: No Symptoms Gastrointestinal: Reports: Constipation Genitourinary: Reports: No Symptoms Musculoskeletal: Reports: No Symptoms Skin: Reports: No Symptoms Neurological: Reports: Confusion, Trouble Speaking, Difficulty Walking, Weakness , Gait Disturbance - Patient Data Vitals - Most Recent: Last Vital Signs Temp 97.6 F 12/04/18 14:45 Pulse 70 12/04/18 14:45 Resp 18 12/04/18 14:45 BP 138/77 12/04/18 14:45 Pulse Ox 97 12/04/18 14:45 Weight - Most Recent: 143 lb 12.815 oz I&O - Last 24 Hours: Intake & Output 12/04/18 12/04/18 12/04/18 06:59 14:59 22:59 Intake Total 900 592 480 Output Total 1800 800 Balance -900 -208 480 Lab Results Last 24 Hours: Laboratory Results - last 24 hr 12/04/18 12/04/18 Range/Units 05:53 05:53 WBC 4.4 L (4.5-11.0) K/uL RBC 3.42 L (4.30-5.90) M/uL Hgb 10.9 L (12.0-15.0) g/dL Hct 29.3 L (40.0-54.0) % MCV 86 (80-98) fL MCH 32 H (27-31) pg MCHC 37 H (32-36) % Plt Count 187 (150-400) K/uL Neut % (Auto) 81 H (36-66) % Lymph % (Auto) 6 L (24-44) % Gem % (Auto) 13 H (2-6) % Eos % (Auto) 1 L (2-4) % Baso % (Auto) 0 (0-1) % Sodium 120 L (140-148) mmol/L Potassium 3.3 L (3.6-5.2) mmol/L Chloride 85 L (100-108) mmol/L Carbon Dioxide 29 (21-32) mmol/L Anion Gap 9.3 (5.0-14.0) mmol/L BUN 4 L (7-18) mg/dL Creatinine 0.5 L (0.8-1.3) mg/dL Est Cr Clr Drug Dosing 101.46 mL/min Estimated GFR (MDRD) > 60 (>60) Glucose 112 H (74-106) mg/dL Calcium 8.7 (8.5-10.1) mg/dL [facility] Results Last 24 Hours: Microbiology 11/30/18 23:40 Aerobic Blood Culture - Preliminary Blood - Arm, Left NO GROWTH AFTER 3 DAYS Anaerobic Blood Culture - Preliminary NO GROWTH AFTER 3 DAYS 11/30/18 23:50 Aerobic Blood Culture - Preliminary Blood - Arm, Right NO GROWTH AFTER 3 DAYS Anaerobic Blood Culture - Preliminary NO GROWTH AFTER 3 DAYS Med Orders - Current: Current Medications Bisacodyl (Dulcolax) 10 mg RECTAL BID PRN PRN Reason: Constipation Doxazosin Mesylate (Cardura) 1 mg PO DAILY [facility] Haloperidol Lactate (Haldol) 2 - 5 mg IVPUSH Q1H PRN PRN Reason: Agitation Last Admin: 12/04/18 16:33 Dose: 3 mg Levofloxacin/Dextrose 500 mg/ (Premix) 100 mls @ 100 mls/hr IV Q24H [facility] Last Admin: 12/04/18 14:03 Dose: 100 mls/hr Sodium Chloride (Normal Saline) 1,000 mls @ 70 mls/hr IV ASDIRECTED [facility] Ibuprofen (Motrin) 800 mg PO Q8H PRN PRN Reason: Pain Last Admin: 12/04/18 05:45 Dose: 800 mg Lisinopril (Prinivil) 20 mg PO DAILY [facility] Last Admin: 12/04/18 08:38 Dose: 20 mg Melatonin (Melatonin) 9 mg PO BEDTIME PRN PRN Reason: Insomnia Last Admin: 12/03/18 20:54 Dose: 9 mg Memantine (Namenda) 20 mg PO DAILY@1999 [facility] Last Admin: 12/03/18 20:37 Dose: 20 mg Sodium Chloride 1gm (TabletPom) 0 each PO TID [facility] Last Admin: 12/04/18 14:04 Dose: 3 each Potassium Chloride (Klor-Con M20) 20 meq PO BID [facility] Last Admin: 12/04/18 08:41 Dose: 20 meq Discontinued Medications Bisacodyl (Dulcolax) 10 mg PO ONETIME ONE Stop: 12/04/18 10:01 Last Admin: 12/04/18 11:20 Dose: 10 mg Doxazosin Mesylate (Cardura) 2 mg PO DAILY [facility] Last Admin: 12/04/18 08:41 Dose: 2 mg Sodium Chloride (Normal Saline) 1,000 mls @ 250 mls/hr IV ASDIRECTED [facility] Last Admin: 12/01/18 00:35 Dose: 250 mls/hr Sodium Chloride (Normal Saline) 1,000 mls @ 125 mls/hr IV ASDIRECTED [facility] Last Admin: 12/03/18 05:44 Dose: 125 mls/hr Polyethylene Glycol (Miralax) 17 gm PO ONETIME ONE Stop: 12/04/18 10:01 Last Admin: 12/04/18 11:20 Dose: 17 gm - Exam General: Moderate Distress HEENT: Pupils Equal, Pupils Reactive, EOMI, Mucous Membr. Moist/[place] Neck: Supple Lungs: Clear to Auscultation, Normal Respiratory Effort Cardiovascular: Regular Rate, Regular Rhythm GI/Abdominal Exam: Normal Bowel Sounds, Soft, Non-Tender, No Organomegaly, No Distention, No Abnormal Bruit, No Mass, Pelvis Stable Extremities: Limited Range of Motion Peripheral Pulses: 1+: Radial (L), Radial (R) Skin: Warm, Dry, Intact Psy/Mental Status: Anxious, Agitated, Hallucinations - Problem List Review Problem List Initiated/Reviewed/Updated: Yes - My Orders Last 24 Hours: My Active Orders 12/04/18 09:20 Bisacodyl [Dulcolax] 10 mg RECTAL BID PRN 12/04/18 13:21 Antiembolic Devices [RC] .Routine SCD [Sequential Compression Device] [OM.PC] Routine 12/04/18 Breakfast Pureed Diet [DIET] 12/05/18 05:11 BASIC METABOLIC PANEL,BMP [CHEM] DAILY CBC WITH AUTO DIFF [HEME] DAILY 12/05/18 09:00 Doxazosin [Cardura] 1 mg PO DAILY 12/06/18 05:11 BASIC METABOLIC PANEL,BMP [CHEM] DAILY CBC WITH AUTO DIFF [HEME] DAILY 12/07/18 05:11 BASIC METABOLIC PANEL,BMP [CHEM] DAILY CBC WITH AUTO DIFF [HEME] DAILY 12/08/18 05:11 BASIC METABOLIC PANEL,BMP [CHEM] DAILY CBC WITH AUTO DIFF [HEME] DAILY 12/09/18 05:11 BASIC METABOLIC PANEL,BMP [CHEM] DAILY CBC WITH AUTO DIFF [HEME] DAILY 12/10/18 05:11 BASIC METABOLIC PANEL,BMP [CHEM] DAILY CBC WITH AUTO DIFF [HEME] DAILY 12/11/18 05:11 BASIC METABOLIC PANEL,BMP [CHEM] DAILY CBC WITH AUTO DIFF [HEME] DAILY 12/12/18 05:11 BASIC METABOLIC PANEL,BMP [CHEM] DAILY CBC WITH AUTO DIFF [HEME] DAILY 12/13/18 05:11 BASIC METABOLIC PANEL,BMP [CHEM] DAILY CBC WITH AUTO DIFF [HEME] DAILY 12/14/18 05:11 BASIC METABOLIC PANEL,BMP [CHEM] DAILY CBC WITH AUTO DIFF [HEME] DAILY 12/15/18 05:11 BASIC METABOLIC PANEL,BMP [CHEM] DAILY CBC WITH AUTO DIFF [HEME] DAILY 12/16/18 05:11 BASIC METABOLIC PANEL,BMP [CHEM] DAILY CBC WITH AUTO DIFF [HEME] DAILY 12/17/18 05:11 BASIC METABOLIC PANEL,BMP [CHEM] DAILY CBC WITH AUTO DIFF [HEME] DAILY 12/18/18 05:11 BASIC METABOLIC PANEL,BMP [CHEM] DAILY CBC WITH AUTO DIFF [HEME] DAILY 12/19/18 05:11 BASIC METABOLIC PANEL,BMP [CHEM] DAILY CBC WITH AUTO DIFF [HEME] DAILY 12/20/18 05:11 BASIC METABOLIC PANEL,BMP [CHEM] DAILY CBC WITH AUTO DIFF [HEME] DAILY 12/21/18 05:11 BASIC METABOLIC PANEL,BMP [CHEM] DAILY CBC WITH AUTO DIFF [HEME] DAILY 12/22/18 05:11 BASIC METABOLIC PANEL,BMP [CHEM] DAILY CBC WITH AUTO DIFF [HEME] DAILY - Plan Plan:: Assessment/plan: #1. Hyponatremia. His sodium is 120 this is secondary to his hormonal effect of his cancer this will need be corrected slowly. I feel that IV with hypertonic saline is not indicated. Will decrease IV Fluids. #2. Small cell lung cancer with metastasis. He's been seen by the oncologist.He's been gradually getting worse recently. There is recently a report that he has metastasis which is quite widespread. This is reported to the family I have not seen the report myself. #3. Hypertension. BP is elevated 138\61 but refuses salt pills today and refused cardura. Blood pressure was 118 this morning I this may need to be adjusted further. #4. Dementia: continue with Namenda #5. Status post bladder cancer. He has a urostomy bag in place. #6. Hyperlipidemia. #7. Status post pulmonary embolism. this is in the past and is not active at the present time. #8. Compression fracture lumbar spine: This will not be treated because of the widespread metastasis. #9. UTI. treating with Levofloxacin. #10. Family counseled today we decided to place him in a no code DNR/DNI status. His overall prognosis is poor he'll be seen by hospice.
[2018-12-04] MEDS: Memantine 10 MG Tab PO SCH (21:09)
[2018-12-05] MEDS: Potassium Chloride 20 MEQ Tab.ER PO SCH ×2 (08:05→20:51)
[2018-12-05] MEDS: Doxazosin 4 MG Tab PO SCH (08:05)
[2018-12-05] MEDS: Lisinopril 20 MG Tab PO SCH (08:06)
[2018-12-05] MEDS: SODIUM CHLORIDE 1 GM PO SCH ×3 (08:06→20:51)
[2018-12-05] MEDS ORDERED: Pneumococcal Polyvalent-23 Vaccine 0.5 ML SDV IM ONE (10:00)
[2018-12-05] MEDS: Levofloxacin/Dextrose 5%-Water 500 MG in Premix Bag 1 BAG IV SCH (13:01)
[2018-12-05] MEDS: Memantine 10 MG Tab PO SCH (20:51)
--- NOTE | 2018-12-05 21:32 | PCM.PN ---
- General Info Date of Service: 12/05/18 Functional Status: Reports: Pain Controlled - Review of Systems General: Reports: Weakness, Fatigue HEENT: Reports: No Symptoms Pulmonary: Reports: No Symptoms Cardiovascular: Reports: No Symptoms Gastrointestinal: Reports: Constipation Genitourinary: Reports: No Symptoms Musculoskeletal: Reports: Back Pain Skin: Reports: No Symptoms Neurological: Reports: Difficulty Walking, Weakness Psychiatric: Reports: Confusion, Hallucinations - Patient Data Vitals - Most Recent: Last Vital Signs Temp 98.2 F 12/05/18 19:00 Pulse 74 12/05/18 19:00 Resp 16 12/05/18 19:00 BP 114/87 12/05/18 19:00 Pulse Ox 94 L 12/05/18 19:00 Weight - Most Recent: 136 lb 9.6 oz I&O - Last 24 Hours: Intake & Output 12/05/18 12/05/18 12/05/18 06:59 14:59 22:59 Intake Total 540 Output Total 950 850 Balance -950 540 -850 Lab Results Last 24 Hours: Laboratory Results - last 24 hr 12/05/18 12/05/18 Range/Units 05:00 05:00 WBC 3.8 L (4.5-11.0) K/uL RBC 3.46 L (4.30-5.90) M/uL Hgb 11.2 L (12.0-15.0) g/dL Hct 30.2 L (40.0-54.0) % MCV 87 (80-98) fL MCH 32 H (27-31) pg MCHC 37 H (32-36) % Plt Count 167 (150-400) K/uL Neut % (Auto) 79 H (36-66) % Lymph % (Auto) 7 L (24-44) % [place] % (Auto) 13 H (2-6) % Eos % (Auto) 1 L (2-4) % Baso % (Auto) 0 (0-1) % Sodium 121 L (140-148) mmol/L Potassium 3.6 (3.6-5.2) mmol/L Chloride 86 L (100-108) mmol/L Carbon Dioxide 31 (21-32) mmol/L Anion Gap 7.6 (5.0-14.0) mmol/L BUN 6 L (7-18) mg/dL Creatinine 0.6 L (0.8-1.3) mg/dL Est Cr Clr Drug Dosing 84.55 mL/min Estimated GFR (MDRD) > 60 (>60) Glucose 101 (74-106) mg/dL Calcium 8.8 (8.5-10.1) mg/dL [facility] Results Last 24 Hours: Microbiology 11/30/18 23:40 Aerobic Blood Culture - Preliminary Blood - Arm, Left NO GROWTH AFTER 4 DAYS Anaerobic Blood Culture - Preliminary NO GROWTH AFTER 4 DAYS 11/30/18 23:50 Aerobic Blood Culture - Preliminary Blood - Arm, Right NO GROWTH AFTER 4 DAYS Anaerobic Blood Culture - Preliminary NO GROWTH AFTER 4 DAYS Med Orders - Current: Current Medications Bisacodyl (Dulcolax) 10 mg RECTAL BID PRN PRN Reason: Constipation Last Admin: 12/05/18 10:08 Dose: 10 mg Doxazosin Mesylate (Cardura) 1 mg PO DAILY [facility] Last Admin: 12/05/18 08:05 Dose: 1 mg Haloperidol Lactate (Haldol) 2 - 5 mg IVPUSH Q1H PRN PRN Reason: Agitation Last Admin: 12/04/18 16:33 Dose: 3 mg Levofloxacin/Dextrose 500 mg/ (Premix) 100 mls @ 100 mls/hr IV Q24H [facility] Last Admin: 12/05/18 13:01 Dose: 100 mls/hr Sodium Chloride (Normal Saline) 1,000 mls @ 70 mls/hr IV ASDIRECTED [facility] Ibuprofen (Motrin) 800 mg PO Q8H PRN PRN Reason: Pain Last Admin: 12/04/18 05:45 Dose: 800 mg Lisinopril (Prinivil) 20 mg PO DAILY [facility] Last Admin: 12/05/18 08:06 Dose: 20 mg Melatonin (Melatonin) 9 mg PO BEDTIME PRN PRN Reason: Insomnia Last Admin: 12/03/18 20:54 Dose: 9 mg Memantine (Namenda) 20 mg PO DAILY@1999 [facility] Last Admin: 12/05/18 20:51 Dose: 20 mg Sodium Chloride 1gm (TabletPom) 0 each PO TID [facility] Last Admin: 12/05/18 20:51 Dose: 1 each Potassium Chloride (Klor-Con M20) 20 meq PO BID [facility] Last Admin: 12/05/18 20:51 Dose: 20 meq Discontinued Medications Bisacodyl (Dulcolax) 10 mg PO ONETIME ONE Stop: 12/04/18 10:01 Last Admin: 12/04/18 11:20 Dose: 10 mg Doxazosin Mesylate (Cardura) 2 mg PO DAILY [facility] Last Admin: 12/04/18 08:41 Dose: 2 mg Sodium Chloride (Normal Saline) 1,000 mls @ 250 mls/hr IV ASDIRECTED [facility] Last Admin: 12/01/18 00:35 Dose: 250 mls/hr Sodium Chloride (Normal Saline) 1,000 mls @ 125 mls/hr IV ASDIRECTED [facility] Last Admin: 12/03/18 05:44 Dose: 125 mls/hr Pneumococcal Polyvalent Vaccine (Pneumovax 23) 0.5 ml IM .ONCE ONE Stop: 12/05/18 10:01 Last Admin: 12/05/18 11:22 Dose: Not Given Polyethylene Glycol (Miralax) 17 gm PO ONETIME ONE Stop: 12/04/18 10:01 Last Admin: 12/04/18 11:20 Dose: 17 gm - Exam General: Cooperative, Moderate Distress HEENT: Pupils Equal, Pupils Reactive, EOMI, Mucous Membr. Moist/[place] Neck: Supple Lungs: Clear to Auscultation, Normal Respiratory Effort Cardiovascular: Regular Rate, Regular Rhythm GI/Abdominal Exam: Normal Bowel Sounds, Soft, Non-Tender, No Organomegaly, No Distention, No Abnormal Bruit, No Mass, Pelvis Stable Back Exam: Normal Inspection Extremities: Joint Swelling Peripheral Pulses: 1+: Radial (L), Radial (R) Skin: Warm, Dry, Intact Psy/Mental Status: Anxious - Problem List Review Problem List Initiated/Reviewed/Updated: Yes - My Orders Last 24 Hours: My Active Orders 12/04/18 22:02 Code Status [Resuscitation Status] Routine 12/05/18 09:00 Doxazosin [Cardura] 1 mg PO DAILY 12/05/18 10:27 PT Evaluation and Treatment [CONS] Routine 12/06/18 05:11 BASIC METABOLIC PANEL,BMP [CHEM] DAILY CBC WITH AUTO DIFF [HEME] DAILY 12/07/18 05:11 BASIC METABOLIC PANEL,BMP [CHEM] DAILY CBC WITH AUTO DIFF [HEME] DAILY 12/08/18 05:11 BASIC METABOLIC PANEL,BMP [CHEM] DAILY CBC WITH AUTO DIFF [HEME] DAILY 12/09/18 05:11 BASIC METABOLIC PANEL,BMP [CHEM] DAILY CBC WITH AUTO DIFF [HEME] DAILY 12/10/18 05:11 BASIC METABOLIC PANEL,BMP [CHEM] DAILY CBC WITH AUTO DIFF [HEME] DAILY 12/11/18 05:11 BASIC METABOLIC PANEL,BMP [CHEM] DAILY CBC WITH AUTO DIFF [HEME] DAILY 12/12/18 05:11 BASIC METABOLIC PANEL,BMP [CHEM] DAILY CBC WITH AUTO DIFF [HEME] DAILY 12/13/18 05:11 BASIC METABOLIC PANEL,BMP [CHEM] DAILY CBC WITH AUTO DIFF [HEME] DAILY 12/14/18 05:11 BASIC METABOLIC PANEL,BMP [CHEM] DAILY CBC WITH AUTO DIFF [HEME] DAILY 12/15/18 05:11 BASIC METABOLIC PANEL,BMP [CHEM] DAILY CBC WITH AUTO DIFF [HEME] DAILY 12/16/18 05:11 BASIC METABOLIC PANEL,BMP [CHEM] DAILY CBC WITH AUTO DIFF [HEME] DAILY 12/17/18 05:11 BASIC METABOLIC PANEL,BMP [CHEM] DAILY CBC WITH AUTO DIFF [HEME] DAILY 12/18/18 05:11 BASIC METABOLIC PANEL,BMP [CHEM] DAILY CBC WITH AUTO DIFF [HEME] DAILY 12/19/18 05:11 BASIC METABOLIC PANEL,BMP [CHEM] DAILY CBC WITH AUTO DIFF [HEME] DAILY 12/20/18 05:11 BASIC METABOLIC PANEL,BMP [CHEM] DAILY CBC WITH AUTO DIFF [HEME] DAILY 12/21/18 05:11 BASIC METABOLIC PANEL,BMP [CHEM] DAILY CBC WITH AUTO DIFF [HEME] DAILY 12/22/18 05:11 BASIC METABOLIC PANEL,BMP [CHEM] DAILY CBC WITH AUTO DIFF [HEME] DAILY - Plan Plan:: Assessment/plan: #1. Hyponatremia. His sodium is 121 this is secondary to his hormonal effect of his cancer this will need be corrected slowly. I feel that IV with hypertonic saline is not indicated. #2. Small cell lung cancer with metastasis. He's been seen by the oncologist.He's been gradually getting worse recently. There is recently a report that he has metastasis which is quite widespread. This is reported to the family I have not seen the report myself. #3. Hypertension. BP is elevated 147 this morning after increasing Cardura it is 114 systolic. #4. Dementia: continue with Namenda. This will probably not do a lot for him. The oncologist for [place] wanted to make sure he was on this. #5. Status post bladder cancer. He has a urostomy bag in place. #6. Hyperlipidemia. #7. Status post pulmonary embolism. this is in the past and is not active at the present time. #8. Compression fracture lumbar spine: This will not be treated because of the widespread metastasis. #9. UTI. treating with Levofloxacin. #10. Family counseled today we decided to place him in a no code DNR/DNI status. His overall prognosis is poor he'll be seen by hospice. halfway placement with hospice is pending.
[2018-12-06] MEDS: Haloperidol Lactate 5 MG/ML SDV IVPUSH PRN ×5 (01:37→17:06)
--- NOTE | 2018-12-06 08:36 | PCM.PN ---
- General Info Date of Service: 12/06/18 - Review of Systems General: Reports: Weakness, Fatigue HEENT: Reports: No Symptoms Pulmonary: Reports: No Symptoms Cardiovascular: Reports: No Symptoms Gastrointestinal: Reports: No Symptoms Genitourinary: Reports: No Symptoms Musculoskeletal: Reports: No Symptoms Skin: Reports: No Symptoms Neurological: Reports: Confusion, Difficulty Walking, Weakness, Gait Disturbance Psychiatric: Reports: Confusion, Hallucinations - Patient Data Vitals - Most Recent: Last Vital Signs Temp 99.1 F 12/06/18 01:06 Pulse 74 12/06/18 01:06 Resp 16 12/06/18 01:06 BP 146/62 H 12/06/18 01:06 Pulse Ox 94 L 12/06/18 01:06 Weight - Most Recent: 136 lb 9.6 oz I&O - Last 24 Hours: Intake & Output 12/05/18 12/06/18 12/06/18 22:59 06:59 14:59 Output Total 850 600 Balance -850 -600 Lab Results Last 24 Hours: Laboratory Results - last 24 hr 12/06/18 12/06/18 Range/Units 05:54 05:54 WBC 4.8 (4.5-11.0) K/uL RBC 3.62 L (4.30-5.90) M/uL Hgb 11.4 L (12.0-15.0) g/dL Hct 32.0 L (40.0-54.0) % MCV 88 (80-98) fL MCH 32 H (27-31) pg MCHC 36 (32-36) % Plt Count 183 (150-400) K/uL Neut % (Auto) 80 H (36-66) % Lymph % (Auto) 7 L (24-44) % [place] % (Auto) 12 H (2-6) % Eos % (Auto) 0 L (2-4) % Baso % (Auto) 0 (0-1) % Sodium 122 L (140-148) mmol/L Potassium 4.2 (3.6-5.2) mmol/L Chloride 88 L (100-108) mmol/L Carbon Dioxide 30 (21-32) mmol/L Anion Gap 8.2 (5.0-14.0) mmol/L BUN 10 D (7-18) mg/dL Creatinine 0.7 L (0.8-1.3) mg/dL Est Cr Clr Drug Dosing 68.85 mL/min Estimated GFR (MDRD) > 60 (>60) Glucose 108 H (74-106) mg/dL Calcium 9.1 (8.5-10.1) mg/dL [facility] Results Last 24 Hours: Microbiology 11/30/18 23:40 Aerobic Blood Culture - Final Blood - Arm, Left NO GROWTH AFTER 5 DAYS Anaerobic Blood Culture - Final NO GROWTH AFTER 5 DAYS 11/30/18 23:50 Aerobic Blood Culture - Final Blood - Arm, Right NO GROWTH AFTER 5 DAYS Anaerobic Blood Culture - Final NO GROWTH AFTER 5 DAYS Med Orders - Current: Current Medications Bisacodyl (Dulcolax) 10 mg RECTAL BID PRN PRN Reason: Constipation Last Admin: 12/05/18 10:08 Dose: 10 mg Doxazosin Mesylate (Cardura) 1 mg PO DAILY [facility] Last Admin: 12/05/18 08:05 Dose: 1 mg Haloperidol Lactate (Haldol) 2 - 5 mg IVPUSH Q1H PRN PRN Reason: Agitation Last Admin: 12/06/18 05:57 Dose: 5 mg Levofloxacin/Dextrose 500 mg/ (Premix) 100 mls @ 100 mls/hr IV Q24H [facility] Last Admin: 12/05/18 13:01 Dose: 100 mls/hr Ibuprofen (Motrin) 800 mg PO Q8H PRN PRN Reason: Pain Last Admin: 12/04/18 05:45 Dose: 800 mg Lisinopril (Prinivil) 20 mg PO DAILY [facility] Last Admin: 12/05/18 08:06 Dose: 20 mg Melatonin (Melatonin) 9 mg PO BEDTIME PRN PRN Reason: Insomnia Last Admin: 12/03/18 20:54 Dose: 9 mg Memantine (Namenda) 20 mg PO DAILY@1999 [facility] Last Admin: 12/05/18 20:51 Dose: 20 mg Sodium Chloride 1gm (TabletPom) 0 each PO TID [facility] Last Admin: 12/05/18 20:51 Dose: 1 each Potassium Chloride (Klor-Con M20) 20 meq PO BID [facility] Last Admin: 12/05/18 20:51 Dose: 20 meq Discontinued Medications Bisacodyl (Dulcolax) 10 mg PO ONETIME ONE Stop: 12/04/18 10:01 Last Admin: 12/04/18 11:20 Dose: 10 mg Doxazosin Mesylate (Cardura) 2 mg PO DAILY [facility] Last Admin: 12/04/18 08:41 Dose: 2 mg Sodium Chloride (Normal Saline) 1,000 mls @ 250 mls/hr IV ASDIRECTED [facility] Last Admin: 12/01/18 00:35 Dose: 250 mls/hr Sodium Chloride (Normal Saline) 1,000 mls @ 125 mls/hr IV ASDIRECTED [facility] Last Admin: 12/03/18 05:44 Dose: 125 mls/hr Sodium Chloride (Normal Saline) 1,000 mls @ 70 mls/hr IV ASDIRECTED [facility] Pneumococcal Polyvalent Vaccine (Pneumovax 23) 0.5 ml IM .ONCE ONE Stop: 12/05/18 10:01 Last Admin: 12/05/18 11:22 Dose: Not Given Polyethylene Glycol (Miralax) 17 gm PO ONETIME ONE Stop: 12/04/18 10:01 Last Admin: 12/04/18 11:20 Dose: 17 gm - Exam General: Moderate Distress HEENT: Pupils Equal, Pupils Reactive, EOMI, Mucous Membr. Moist/[place] Lungs: Clear to Auscultation, Normal Respiratory Effort Cardiovascular: Regular Rate, Regular Rhythm GI/Abdominal Exam: No Mass Back Exam: Normal Inspection, Full Range of Motion Extremities: Normal Inspection, Normal Range of Motion, Non-Tender, No Pedal Edema, Normal Capillary Refill Peripheral Pulses: 1+: Radial (L), Radial (R) Skin: Warm, Dry, Intact Psy/Mental Status: Hallucinations - Problem List Review Problem List Initiated/Reviewed/Updated: Yes - My Orders Last 24 Hours: My Active Orders 12/05/18 09:00 Doxazosin [Cardura] 1 mg PO DAILY 12/05/18 10:27 PT Evaluation and Treatment [CONS] Routine 12/07/18 05:11 BASIC METABOLIC PANEL,BMP [CHEM] DAILY CBC WITH AUTO DIFF [HEME] DAILY 12/08/18 05:11 BASIC METABOLIC PANEL,BMP [CHEM] DAILY CBC WITH AUTO DIFF [HEME] DAILY 12/09/18 05:11 BASIC METABOLIC PANEL,BMP [CHEM] DAILY CBC WITH AUTO DIFF [HEME] DAILY 12/10/18 05:11 BASIC METABOLIC PANEL,BMP [CHEM] DAILY CBC WITH AUTO DIFF [HEME] DAILY 12/11/18 05:11 BASIC METABOLIC PANEL,BMP [CHEM] DAILY CBC WITH AUTO DIFF [HEME] DAILY 12/12/18 05:11 BASIC METABOLIC PANEL,BMP [CHEM] DAILY CBC WITH AUTO DIFF [HEME] DAILY 12/13/18 05:11 BASIC METABOLIC PANEL,BMP [CHEM] DAILY CBC WITH AUTO DIFF [HEME] DAILY 12/14/18 05:11 BASIC METABOLIC PANEL,BMP [CHEM] DAILY CBC WITH AUTO DIFF [HEME] DAILY 12/15/18 05:11 BASIC METABOLIC PANEL,BMP [CHEM] DAILY CBC WITH AUTO DIFF [HEME] DAILY 12/16/18 05:11 BASIC METABOLIC PANEL,BMP [CHEM] DAILY CBC WITH AUTO DIFF [HEME] DAILY 12/17/18 05:11 BASIC METABOLIC PANEL,BMP [CHEM] DAILY CBC WITH AUTO DIFF [HEME] DAILY 12/18/18 05:11 BASIC METABOLIC PANEL,BMP [CHEM] DAILY CBC WITH AUTO DIFF [HEME] DAILY 12/19/18 05:11 BASIC METABOLIC PANEL,BMP [CHEM] DAILY CBC WITH AUTO DIFF [HEME] DAILY 12/20/18 05:11 BASIC METABOLIC PANEL,BMP [CHEM] DAILY CBC WITH AUTO DIFF [HEME] DAILY 12/21/18 05:11 BASIC METABOLIC PANEL,BMP [CHEM] DAILY CBC WITH AUTO DIFF [HEME] DAILY 12/22/18 05:11 BASIC METABOLIC PANEL,BMP [CHEM] DAILY CBC WITH AUTO DIFF [HEME] DAILY - Plan Plan:: Assessment/plan: #1. Hyponatremia. His sodium is 122 this is secondary to his hormonal effect of his cancer this will need be corrected slowly. I feel that IV with hypertonic saline is not indicated. #2. Small cell lung cancer with metastasis. He's been seen by the oncologist. He's been gradually getting worse recently. There is recently a report that he has metastasis which is quite widespread. This is reported to the family I have not seen the report myself. #3. Hypertension. BP is elevated 146/62. Will continue with Cardura. #4. Dementia: continue with Namenda. This will probably not do a lot for him. The oncologist for [place] wanted to make sure he was on this. #5. Status post bladder cancer. He has a urostomy bag in place. #6. Hyperlipidemia. #7. Status post pulmonary embolism. this is in the past and is not active at the present time. #8. Compression fracture lumbar spine: This will not be treated because of the widespread metastasis. #9. UTI. treating with Levofloxacin. #10. Family counseled decided to place him in a no code DNR/DNI status. His overall prognosis is poor he'll be seen by hospice. long-term placement with hospice is pending. Family is deciding and placement.
[2018-12-06] MEDS: Doxazosin 4 MG Tab PO SCH (10:05)
[2018-12-06] MEDS: Potassium Chloride 20 MEQ Tab.ER PO SCH ×2 (10:05→20:05)
[2018-12-06] MEDS: Lisinopril 20 MG Tab PO SCH (10:05)
[2018-12-06] MEDS: SODIUM CHLORIDE 1 GM PO SCH ×3 (10:06→20:05)
[2018-12-06] MEDS: Levofloxacin/Dextrose 5%-Water 500 MG in Premix Bag 1 BAG IV SCH (13:39)
[2018-12-06] MEDS: Memantine 10 MG Tab PO SCH (20:05)
[2018-12-07] MEDS: Lisinopril 20 MG Tab PO SCH (08:34)
[2018-12-07] MEDS: Doxazosin 4 MG Tab PO SCH (08:34)
[2018-12-07] MEDS: SODIUM CHLORIDE 1 GM PO SCH (08:34)
[2018-12-07] MEDS: Potassium Chloride 20 MEQ Tab.ER PO SCH (08:34)
--- NOTE | 2018-12-07 08:41 | PCM.PN ---
- General Info Date of Service: 12/07/18 Functional Status: Reports: Pain Controlled - Review of Systems General: Reports: Weakness HEENT: Reports: No Symptoms Pulmonary: Reports: No Symptoms Cardiovascular: Reports: No Symptoms Gastrointestinal: Reports: Constipation Genitourinary: Reports: No Symptoms Musculoskeletal: Reports: No Symptoms Skin: Reports: No Symptoms Neurological: Reports: Confusion, Trouble Speaking, Difficulty Walking, Weakness , Change in Speech, Gait Disturbance Psychiatric: Reports: Anxiety, Agitation, Hallucinations - Patient Data Vitals - Most Recent: Last Vital Signs Temp 97.7 F 12/07/18 07:15 Pulse 50 L 12/07/18 07:15 Resp 18 12/07/18 07:15 BP 157/81 H 12/07/18 08:34 Pulse Ox 93 L 12/07/18 07:15 Weight - Most Recent: 136 lb 9.6 oz I&O - Last 24 Hours: Intake & Output 12/06/18 12/07/18 12/07/18 22:59 06:59 14:59 Intake Total 30 Output Total 450 600 Balance -420 -600 Lab Results Last 24 Hours: Laboratory Results - last 24 hr 12/07/18 Range/Units 05:00 Sodium 125 L (140-148) mmol/L Potassium 3.7 (3.6-5.2) mmol/L Chloride 90 L (100-108) mmol/L Carbon Dioxide 30 (21-32) mmol/L Anion Gap 8.7 (5.0-14.0) mmol/L BUN 11 (7-18) mg/dL Creatinine 0.6 L (0.8-1.3) mg/dL Est Cr Clr Drug Dosing 80.32 mL/min Estimated GFR (MDRD) > 60 (>60) Glucose 105 (74-106) mg/dL Calcium 9.0 (8.5-10.1) mg/dL Med Orders - Current: Current Medications Bisacodyl (Dulcolax) 10 mg RECTAL BID PRN PRN Reason: Constipation Last Admin: 12/05/18 10:08 Dose: 10 mg Doxazosin Mesylate (Cardura) 1 mg PO DAILY [facility] Last Admin: 12/07/18 08:34 Dose: 1 mg Haloperidol Lactate (Haldol) 2 - 5 mg IVPUSH Q1H PRN PRN Reason: Agitation Last Admin: 05/15/19 17:06 Dose: 5 mg Levofloxacin/Dextrose 500 mg/ (Premix) 100 mls @ 100 mls/hr IV Q24H [facility] Last Admin: 12/06/18 13:39 Dose: 100 mls/hr Ibuprofen (Motrin) 800 mg PO Q8H PRN PRN Reason: Pain Last Admin: 12/04/18 05:45 Dose: 800 mg Lisinopril (Prinivil) 20 mg PO DAILY [facility] Last Admin: 12/07/18 08:34 Dose: 20 mg Melatonin (Melatonin) 9 mg PO BEDTIME PRN PRN Reason: Insomnia Last Admin: 12/03/18 20:54 Dose: 9 mg Memantine (Namenda) 20 mg PO DAILY@1999 [facility] Last Admin: 12/06/18 20:05 Dose: 20 mg Sodium Chloride 1gm (TabletPom) 0 each PO TID [facility] Last Admin: 12/07/18 08:34 Dose: 1 each Potassium Chloride (Klor-Con M20) 20 meq PO BID [facility] Last Admin: 12/07/18 08:34 Dose: 20 meq Discontinued Medications Bisacodyl (Dulcolax) 10 mg PO ONETIME ONE Stop: 12/04/18 10:01 Last Admin: 12/04/18 11:20 Dose: 10 mg Doxazosin Mesylate (Cardura) 2 mg PO DAILY [facility] Last Admin: 12/04/18 08:41 Dose: 2 mg Sodium Chloride (Normal Saline) 1,000 mls @ 250 mls/hr IV ASDIRECTED [facility] Last Admin: 12/01/18 00:35 Dose: 250 mls/hr Sodium Chloride (Normal Saline) 1,000 mls @ 125 mls/hr IV ASDIRECTED [facility] Last Admin: 12/03/18 05:44 Dose: 125 mls/hr Sodium Chloride (Normal Saline) 1,000 mls @ 70 mls/hr IV ASDIRECTED [facility] Pneumococcal Polyvalent Vaccine (Pneumovax 23) 0.5 ml IM .ONCE ONE Stop: 12/05/18 10:01 Last Admin: 12/05/18 11:22 Dose: Not Given Polyethylene Glycol (Miralax) 17 gm PO ONETIME ONE Stop: 12/04/18 10:01 Last Admin: 12/04/18 11:20 Dose: 17 gm - Exam General: Moderate Distress HEENT: Pupils Equal Neck: Supple Lungs: Clear to Auscultation Cardiovascular: Regular Rate GI/Abdominal Exam: Normal Bowel Sounds, Soft Back Exam: Vertebral Tenderness Extremities: Non-Tender Peripheral Pulses: 1+: Radial (L), Radial (R) Skin: Warm, Dry, Intact Psy/Mental Status: Anxious, Agitated, Hallucinations - Problem List Review Problem List Initiated/Reviewed/Updated: Yes - My Orders Last 24 Hours: My Active Orders 12/07/18 05:00 CBC WITH AUTO DIFF [HEME] DAILY 12/07/18 08:21 Ready for Discharge [RC] PER UNIT ROUTINE 12/08/18 05:11 BASIC METABOLIC PANEL,BMP [CHEM] DAILY CBC WITH AUTO DIFF [HEME] DAILY 12/09/18 05:11 BASIC METABOLIC PANEL,BMP [CHEM] DAILY CBC WITH AUTO DIFF [HEME] DAILY 12/10/18 05:11 BASIC METABOLIC PANEL,BMP [CHEM] DAILY CBC WITH AUTO DIFF [HEME] DAILY 12/11/18 05:11 BASIC METABOLIC PANEL,BMP [CHEM] DAILY CBC WITH AUTO DIFF [HEME] DAILY 12/12/18 05:11 BASIC METABOLIC PANEL,BMP [CHEM] DAILY CBC WITH AUTO DIFF [HEME] DAILY 12/13/18 05:11 BASIC METABOLIC PANEL,BMP [CHEM] DAILY CBC WITH AUTO DIFF [HEME] DAILY 12/14/18 05:11 BASIC METABOLIC PANEL,BMP [CHEM] DAILY CBC WITH AUTO DIFF [HEME] DAILY 12/15/18 05:11 BASIC METABOLIC PANEL,BMP [CHEM] DAILY CBC WITH AUTO DIFF [HEME] DAILY 12/16/18 05:11 BASIC METABOLIC PANEL,BMP [CHEM] DAILY CBC WITH AUTO DIFF [HEME] DAILY 12/17/18 05:11 BASIC METABOLIC PANEL,BMP [CHEM] DAILY CBC WITH AUTO DIFF [HEME] DAILY 12/18/18 05:11 BASIC METABOLIC PANEL,BMP [CHEM] DAILY CBC WITH AUTO DIFF [HEME] DAILY 12/19/18 05:11 BASIC METABOLIC PANEL,BMP [CHEM] DAILY CBC WITH AUTO DIFF [HEME] DAILY 12/20/18 05:11 BASIC METABOLIC PANEL,BMP [CHEM] DAILY CBC WITH AUTO DIFF [HEME] DAILY 12/21/18 05:11 BASIC METABOLIC PANEL,BMP [CHEM] DAILY CBC WITH AUTO DIFF [HEME] DAILY 12/22/18 05:11 BASIC METABOLIC PANEL,BMP [CHEM] DAILY CBC WITH AUTO DIFF [HEME] DAILY - Plan Plan:: Assessment/plan: #1. Hyponatremia. His sodium is 125 this is secondary to his hormonal effect of his cancer this will need be corrected slowly. #2. Small cell lung cancer with metastasis. He's been seen by the oncologist. He's been gradually getting worse recently. There is recently a report that he has metastasis which is quite widespread. This is reported to the family I have not seen the report myself. #3. Hypertension. BP is elevated 157 systolic Will continue with Cardura. #4. Dementia: stop Namenda. #5. Status post bladder cancer. He has a urostomy bag in place. #6. Hyperlipidemia. #7. Status post pulmonary embolism. this is in the past and is not active at the present time. #8. Compression fracture lumbar spine: This will not be treated because of the widespread metastasis. #9. UTI. treating with Levofloxacin. #10. Family counseled decided to place him in a no code DNR/DNI status. His overall prognosis is poor he'll be seen by hospice. skilled nursing placement with hospice is pending. Family will be taking him home.
--- NOTE | 2018-12-07 08:45 | PCM.DCSUM1 ---
Discharge Summary - Hospital Course Brief History: Admitted in a confuson state with poor physical condition. He has a history of low solium and cancer of the lung with mets. Diagnosis: Stroke: No Modified Stonewall Scale: No Symptoms at All Modified Beto Scale Score: 0 - Discharge Data Discharge Date: 12/07/18 Discharge Disposition: Home, Self-Care 01 Condition: Poor - Patient Summary/Data Consults: Consultations 12/01/18 03:14 Consult to Case Management/[employer] [CONS] Routine Comment: Physician Instructions: Service(s) to be Consulted: Case Management Reason for Consult: possible placement Special Instructions: patient lives at home with son. Apparently son is having difficulty taking care of him at home. confused, combative. patient came into ER with stool and urine on him 12/03/18 17:22 Consult to Spiritual Care [CONS] Routine Spiritual Care Reason for Consult: End of Life Care Special Instructions: discuss POLST 12/05/18 10:27 PT Evaluation and Treatment [CONS] Routine Please Evaluate and Treat. PT Reason for Consult: Strengthening Pending Discharge: Yes Discharge Disposition: [facility] Special Instructions: [employer] REQUIRES EVAL AND PARTICIAPTION This query below is only for informational purposes and is not editable. Admission Diagnosis/Problem: Hyponatremia - Discharge Plan *PRESCRIPTION DRUG MONITORING PROGRAM REVIEWED*: No *COPY OF PRESCRIPTION DRUG MONITORING REPORT IN PATIENT [place]: No Home Medications: Home Meds Acetaminophen [Tylenol] 650 mg PO BID 11/16/18 [History] Potassium Chloride [Klor-Con M20] 20 meq PO DAILY tab.er 11/16/18 [Rx] Bisacodyl [Dulcolax] 10 mg RECTAL BID PRN supp 12/07/18 [Rx] Doxazosin [Cardura] 1 mg PO DAILY tablet 12/07/18 [Rx] Lisinopril [Prinivil] 20 mg PO DAILY tablet 12/07/18 [Rx] Melatonin 9 mg PO BEDTIME PRN tablet 12/07/18 [Rx] Patient's Own Medication [Ptom] 0 each PO TID each 12/07/18 [Rx] Potassium Chloride [Klor-Con M20] 20 meq PO BID tab.er 12/07/18 [Rx] Forms: ED Department Discharge Referrals: PCP,None [Primary Care Provider] - - Discharge Summary/Plan Comment DC Time >30 min.: Yes Discharge Summary/Plan Comment: Assessment/plan: #1. Hyponatremia. His sodium is 125 this is secondary to his hormonal effect of his cancer this will need be corrected slowly. #2. Small cell lung cancer with metastasis. He's been seen by the oncologist. He's been gradually getting worse recently. There is recently a report that he has metastasis which is quite widespread. This is reported to the family I have not seen the report myself. #3. Hypertension. BP is elevated 157 systolic Will continue with Cardura. #4. Dementia: stop Namenda. #5. Status post bladder cancer. He has a urostomy bag in place. #6. Hyperlipidemia. #7. Status post pulmonary embolism. this is in the past and is not active at the present time. #8. Compression fracture lumbar spine: This will not be treated because of the widespread metastasis. #9. UTI. treating with Levofloxacin. #10. Family counseled decided to place him in a no code DNR/DNI status. His overall prognosis is poor he'll be followed by hospice at his home . Family will be taking him home. - General Info Functional Status: Reports: Pain Controlled - Review of Systems General: Reports: Weakness, Fatigue HEENT: Reports: No Symptoms Pulmonary: Reports: No Symptoms Cardiovascular: Reports: No Symptoms Gastrointestinal: Reports: Constipation Genitourinary: Reports: No Symptoms Musculoskeletal: Reports: Back Pain Skin: Reports: No Symptoms Neurological: Reports: Difficulty Walking, Weakness, Gait Disturbance Psychiatric: Reports: Anxiety, Agitation, Hallucinations - Patient Data Vitals - Most Recent: Last Vital Signs Temp 97.7 F 12/07/18 07:15 Pulse 50 L 12/07/18 07:15 Resp 18 12/07/18 07:15 BP 157/81 H 12/07/18 08:34 Pulse Ox 93 L 12/07/18 07:15 Weight - Most Recent: 136 lb 9.6 oz I&O - Last 24 hours: Intake & Output 12/06/18 12/07/18 12/07/18 22:59 06:59 14:59 Intake Total 30 Output Total 450 600 Balance -420 -600 Lab Results - Last 24 hrs: Laboratory Results - last 24 hr 12/07/18 Range/Units 05:00 Sodium 125 L (140-148) mmol/L Potassium 3.7 (3.6-5.2) mmol/L Chloride 90 L (100-108) mmol/L Carbon Dioxide 30 (21-32) mmol/L Anion Gap 8.7 (5.0-14.0) mmol/L BUN 11 (7-18) mg/dL Creatinine 0.6 L (0.8-1.3) mg/dL Est Cr Clr Drug Dosing 80.32 mL/min Estimated GFR (MDRD) > 60 (>60) Glucose 105 (74-106) mg/dL Calcium 9.0 (8.5-10.1) mg/dL Med Orders - Current: Current Medications Bisacodyl (Dulcolax) 10 mg RECTAL BID PRN PRN Reason: Constipation Last Admin: 12/05/18 10:08 Dose: 10 mg Doxazosin Mesylate (Cardura) 1 mg PO DAILY [facility] Last Admin: 12/07/18 08:34 Dose: 1 mg Haloperidol Lactate (Haldol) 2 - 5 mg IVPUSH Q1H PRN PRN Reason: Agitation Last Admin: 12/06/18 17:06 Dose: 5 mg Levofloxacin/Dextrose 500 mg/ (Premix) 100 mls @ 100 mls/hr IV Q24H [facility] Last Admin: 12/06/18 13:39 Dose: 100 mls/hr Ibuprofen (Motrin) 800 mg PO Q8H PRN PRN Reason: Pain Last Admin: 12/04/18 05:45 Dose: 800 mg Lisinopril (Prinivil) 20 mg PO DAILY [facility] Last Admin: 12/07/18 08:34 Dose: 20 mg Melatonin (Melatonin) 9 mg PO BEDTIME PRN PRN Reason: Insomnia Last Admin: 12/03/18 20:54 Dose: 9 mg Memantine (Namenda) 20 mg PO DAILY@1999 [facility] Last Admin: 12/06/18 20:05 Dose: 20 mg Sodium Chloride 1gm (TabletPom) 0 each PO TID [facility] Last Admin: 12/07/18 08:34 Dose: 1 each Potassium Chloride (Klor-Con M20) 20 meq PO BID [facility] Last Admin: 12/07/18 08:34 Dose: 20 meq Discontinued Medications Bisacodyl (Dulcolax) 10 mg PO ONETIME ONE Stop: 12/04/18 10:01 Last Admin: 05/13/19 11:20 Dose: 10 mg Doxazosin Mesylate (Cardura) 2 mg PO DAILY [facility] Last Admin: 12/04/18 08:41 Dose: 2 mg Sodium Chloride (Normal Saline) 1,000 mls @ 250 mls/hr IV ASDIRECTED [facility] Last Admin: 12/01/18 00:35 Dose: 250 mls/hr Sodium Chloride (Normal Saline) 1,000 mls @ 125 mls/hr IV ASDIRECTED [facility] Last Admin: 12/03/18 05:44 Dose: 125 mls/hr Sodium Chloride (Normal Saline) 1,000 mls @ 70 mls/hr IV ASDIRECTED [facility] Pneumococcal Polyvalent Vaccine (Pneumovax 23) 0.5 ml IM .ONCE ONE Stop: 12/05/18 10:01 Last Admin: 12/05/18 11:22 Dose: Not Given Polyethylene Glycol (Miralax) 17 gm PO ONETIME ONE Stop: 12/04/18 10:01 Last Admin: 12/04/18 11:20 Dose: 17 gm - Exam General: Reports: Moderate Distress HEENT: Reports: Pupils Equal Neck: Reports: Supple Lungs: Reports: Clear to Auscultation, Normal Respiratory Effort Cardiovascular: Reports: Regular Rate GI/Abdominal Exam: Normal Bowel Sounds, Soft, Non-Tender, No Distention Back Exam: Reports: Vertebral Tenderness Extremities: Normal Inspection Skin: Reports: Warm, Dry Psy/Mental Status: Reports: Anxious, Agitated, Hallucinations
[2018-12-07] MEDS: Ibuprofen 800 MG Tab PO PRN (10:51)
[2018-12-07 11:18] VITALS: BP 131/81
== END 2018-12-07 13:45 | disposition hospice, home (50) | DRG 181 ==
LOC: JP.ED 23:18 → JP.ICU 12-01 01:39 → JP.MS 12-02 10:51
PROVIDERS: ADMIT Internal Medicine; ATTEND Internal Medicine
DX: R53.1 Weakness (principal); R41.0 Disorientation, unspecified; C34.90 Malignant neoplasm of unspecified part of unspecified bronchus or lung; N30.00 Acute cystitis without hematuria; E87.1 Hypo-osmolality and hyponatremia; F03.90 Unspecified dementia, unspecified severity, without behavioral disturbance, psychotic disturbance, mood disturbance, and anxiety; F03.91 Unspecified dementia, unspecified severity, with behavioral disturbance; C79.9 Secondary malignant neoplasm of unspecified site; M48.56XA Collapsed vertebra, not elsewhere classified, lumbar region, initial encounter for fracture; T83.510A Infection and inflammatory reaction due to cystostomy catheter, initial encounter; I10 Essential (primary) hypertension; Z66 Do not resuscitate; Z93.3 Colostomy status; I95.9 Hypotension, unspecified; E78.5 Hyperlipidemia, unspecified; H54.7 Unspecified visual loss; M54.9 Dorsalgia, unspecified; G89.29 Other chronic pain; Z85.038 Personal history of other malignant neoplasm of large intestine; Z85.51 Personal history of malignant neoplasm of bladder; Z86.711 Personal history of pulmonary embolism; Z92.3 Personal history of irradiation; Z88.0 Allergy status to penicillin; N30.20 Other chronic cystitis without hematuria
CPT/HCPCS: 36415; 80053; 81001; 85025; 87040 ×2; 87086; 87088 ×2; 87186 ×2; 96360; 99285; J7030; 80048; 97110-GP; 97161-GP; 97530-GP; A9270-GY; J1630; J1956